=== PATIENT | male | born 1935 | race Caucasian/White ===

== ENCOUNTER → 2017-01-19 | Outpatient (CLI) | payer OTHER ==
[~2017-01-19] MED LIST: ASPEC81 PO; ATOR-26 PO; CLOP1TAB15 PO; CMD5 PO; LISI10TA PO; METO1TAB69 PO; NTRGSL/4 UT; ZNTT/150 PO
[2017-01-19 12:27] LABS: ALT/SGPT 26 U/L (12-78); AST/SGOT 19 U/L (15-37); BLOOD UREA NITROGEN 23 mg/dl (7-18); BUN/CREATININE RATIO 14.1 (10-20); CALCIUM 8.6 mg/dl (8.5-10.1); CARBON DIOXIDE 25 mmol/L (21-32); CHLORIDE 111 mmol/L (98-107); CHOLESTEROL 130 mg/dl (0-200); GLUCOSE 98 mg/dl (70-99); POTASSIUM 4.4 mmol/L (3.5-5.1); SODIUM 144 mmol/L (136-145)
[2017-01-19 12:31] LABS: CHOLESTEROL/HDL RATIO 1.8; HDL CHOLESTEROL 71 mg/dl; LDL CHOLESTEROL CALCULATED 51 mg/dl; TRIGLYCERIDES 38 mg/dl (0-150); VERY LOW DENSITY LIPOPROT CALC 8 mg/dl
[2017-01-19 12:41] LABS: ESTIMATED AVERAGE GLUCOSE 123 mg/dl; HA1C FLAG Normal (Normal)
--- NOTE | 2017-01-25 13:33 | CODING QUERY MEDICAL NECESSITY ---
SUPPORTING DIAGNOSIS NEEDED A supporting diagnosis is required for the test/procedure performed on this patient in order for us to be reimbursed by the patient's insurance. Please provide a supporting diagnosis for the following test/procedure listed below next to the test name along with your signature. *If there is no additional diagnosis for this patient that would support the following test/procedure please document that below next to the test/procedure. Test(s)/Procedure(s) that require a supporting diagnosis: * GLYCATED HEMOGLOBIN DIAGNOSIS: * DOS: 01/19/17 Provider Signature: Date: Thank you Le[facility] Information Management Once completed, please kindly fax back to [phone] For questions please call [phone]
== END | disposition home or self-care (01) ==
LOC: C.LAB1850 11:00
PROVIDERS: ATTEND Internal Medicine
DX: E78.5 Hyperlipidemia, unspecified (principal); R97.20 Elevated prostate specific antigen [PSA]; I25.10 Atherosclerotic heart disease of native coronary artery without angina pectoris; R73.03 Prediabetes

== ENCOUNTER → 2017-03-25 | Outpatient (CLI) | payer OTHER ==
[~2017-03-25] MED LIST changes: +METO100T44 PO; -METO1TAB69 PO
[2017-03-25 12:46] LABS: URINE APPEARANCE CLEAR (CLEAR); URINE BILIRUBIN NEG (NEG); URINE COLOR DK YELLOW; URINE NITRITE NEG (NEG); URINE SPECIFIC GRAVITY 1.021 (1.000-1.030); UROBILINOGEN NEG (NEG); ZZUR CULT IF INDIC CLEAN CATCH NO
[2017-03-25 12:53] LABS: MANUAL MICROSCOPIC REQUIRED? NO; REVIEW REQ? NO
[2017-03-25 17:55] LABS: URINE PROTIEN/CREAT RATIO 0.5 (0-0.2); URINE TOTAL PROTEIN 73.8 mg/dl (0-11.9)
== END | disposition home or self-care (01) ==
LOC: C.LAB1850 10:27
PROVIDERS: ATTEND Internal Medicine Nephrology
DX: N18.3 Chronic kidney disease, stage 3 (moderate) (principal)

== ENCOUNTER → 2017-05-24 | Outpatient (CLI) | payer OTHER ==
[~2017-05-24] MED LIST changes: -METO100T44 PO; +METO1TAB69 PO
[2017-05-24 09:44] LABS: BASO % 0.3 %; BASO ABS # 0.02 K/uL (0-0.2); COMPLETE YES; EOS % 5.2 %; HEMATOCRIT 44.2 % (42-52); IG% 0.2 %; LYMPH % 21.8 %; LYMPH ABS # 1.29 K/uL (1.2-3.4); MEAN CELL VOLUME 92.5 fL (80-100); MEAN CORPUSCULAR HGB CONC 33.5 g/dl (32-36); MEAN PLATELET VOLUME 9.5 fL (7.4-10.4); MONO % 10.2 %; NEUT % 62.3 %; PLATELET COUNT 134 K/uL (130-400); RED BLOOD COUNT 4.78 M/uL (4.7-6.1); WHITE BLOOD COUNT 5.91 K/uL (4.8-10.8)
[2017-05-24 10:24] LABS: BLOOD UREA NITROGEN 22 mg/dl (7-18); BUN/CREATININE RATIO 12.8 (10-20); CALCIUM 8.8 mg/dl (8.5-10.1); CARBON DIOXIDE 29 mmol/L (21-32); CHLORIDE 107 mmol/L (98-107); GLUCOSE 86 mg/dl (70-99); MAGNESIUM 2.3 mg/dl (1.8-2.4); PHOSPHORUS 2.5 mg/dl (2.5-4.9); POTASSIUM 4.2 mmol/L (3.5-5.1); SODIUM 142 mmol/L (136-145)
[2017-05-25 16:53] LABS: ALBUMIN 3.8 G/DL (3.8-4.8); FREE KAPPA 22.2 MG/L (3.3-19.4); FREE KAPPA/LAMBDA RATIO 1.16 (0.26-1.65); FREE LAMBDA 19.2 MG/L (5.7-26.3); GAMMA GLOBULIN 0.7 G/DL (0.8-1.7); TOTAL PROTEIN 5.9 G/DL (6.2-8.3)
== END | disposition home or self-care (01) ==
LOC: C.LAB1850 08:22
PROVIDERS: ATTEND Internal Medicine Nephrology
DX: N18.3 Chronic kidney disease, stage 3 (moderate) (principal)

== ENCOUNTER → 2017-07-26 | Outpatient (CLI) | payer OTHER ==
[2017-07-26 10:14] LABS: BASO % 0.3 %; BASO ABS # 0.02 K/uL (0-0.2); COMPLETE YES; HEMATOCRIT 43.2 % (42-52); IG% 0.3 %; LYMPH % 23.4 %; LYMPH ABS # 1.35 K/uL (1.2-3.4); MEAN CELL VOLUME 92.5 fL (80-100); MEAN CORPUSCULAR HEMOGLOBIN 31.9 pg (25-34); MEAN CORPUSCULAR HGB CONC 34.5 g/dl (32-36); MEAN PLATELET VOLUME 9.6 fL (7.4-10.4); PLATELET COUNT 133 K/uL (130-400); RED BLOOD COUNT 4.67 M/uL (4.7-6.1); WHITE BLOOD COUNT 5.78 K/uL (4.8-10.8)
[2017-07-26 10:26] LABS: ESTIMATED AVERAGE GLUCOSE 123 mg/dl; HA1C FLAG Normal (Normal)
[2017-07-26 10:41] LABS: ALT/SGPT 33 U/L (12-78); AST/SGOT 24 U/L (15-37); BLOOD UREA NITROGEN 18 mg/dl (7-18); BUN/CREATININE RATIO 13.2 (10-20); CALCIUM 8.5 mg/dl (8.5-10.1); CARBON DIOXIDE 30 mmol/L (21-32); CHLORIDE 109 mmol/L (98-107); GLUCOSE 99 mg/dl (70-99); POTASSIUM 4.4 mmol/L (3.5-5.1); SODIUM 143 mmol/L (136-145)
[2017-07-26 10:46] LABS: ALB/GLOB RATIO 1.3 (0.9-2); ALKALINE PHOSPHATASE 56 U/L (45-117); CHOLESTEROL 138 mg/dl (0-200); HDL CHOLESTEROL 69 mg/dl; LDL CHOLESTEROL CALCULATED 58 mg/dl; TRIGLYCERIDES 57 mg/dl (0-150); VERY LOW DENSITY LIPOPROT CALC 11 mg/dl
== END | disposition home or self-care (01) ==
LOC: C.LAB1850 09:33
PROVIDERS: ATTEND Internal Medicine
DX: N28.9 Disorder of kidney and ureter, unspecified (principal); R73.03 Prediabetes; R97.20 Elevated prostate specific antigen [PSA]; E78.5 Hyperlipidemia, unspecified

== ENCOUNTER → 2017-11-22 | Outpatient (CLI) | payer OTHER ==
[~2017-11-22] MED LIST changes: +METO100T44 PO; -METO1TAB69 PO
[2017-11-22 09:33] LABS: BASO % 0.3 %; BASO ABS # 0.02 K/uL (0-0.2); EOS % 5.3 %; EOS ABS # 0.36 K/uL (0-0.5); HEMATOCRIT 45.4 % (42-52); HEMOGLOBIN 15.7 g/dL (14.0-18.0); IG# 0.02 K/uL (0.00-0.02); LYMPH % 19.3 %; MEAN CORPUSCULAR HEMOGLOBIN 32.2 pg (25-34); MEAN CORPUSCULAR HGB CONC 34.6 g/dl (32-36); MEAN PLATELET VOLUME 9.9 fL (7.4-10.4); MONO % 11.6 %; MONO ABS # 0.78 K/uL (0.11-0.59); NEUT % 63.2 %; NEUT ABS # 4.26 K/uL (1.4-6.5); PLATELET COUNT 129 K/uL (130-400); RED CELL DISTRIBUTION WIDTH CV 13.5 % (11.5-14.5); RED CELL DISTRIBUTION WIDTH SD 45.8 fL (36.4-46.3); WHITE BLOOD COUNT 6.74 K/uL (4.8-10.8)
[2017-11-22 10:19] LABS: ALBUMIN 3.7 gm/dl (3.4-5.0); BLOOD UREA NITROGEN 26 mg/dl (7-18); CALCIUM 9.1 mg/dl (8.5-10.1); CARBON DIOXIDE 28 mmol/L (21-32); CREATININE 1.53 mg/dl (0.60-1.40); GLUCOSE 89 mg/dl (70-99); POTASSIUM 3.9 mmol/L (3.5-5.1); SODIUM 140 mmol/L (136-145)
[2017-11-22 10:26] LABS: PHOSPHORUS 2.9 mg/dl (2.5-4.9)
== END | disposition home or self-care (01) ==
LOC: C.LAB1850 08:46
PROVIDERS: ATTEND Internal Medicine Nephrology
DX: N18.3 Chronic kidney disease, stage 3 (moderate) (principal); R97.20 Elevated prostate specific antigen [PSA]

== ENCOUNTER → 2018-02-21 | Outpatient (CLI) | payer OTHER ==
[~2018-02-21] MED LIST changes: +RANI150T85 PO; -ZNTT/150 PO
[2018-02-21 17:08] LABS: ALBUMIN 3.7 gm/dl (3.4-5.0); BLOOD UREA NITROGEN 26 mg/dl (7-18); CALCIUM 8.9 mg/dl (8.5-10.1); CARBON DIOXIDE 29 mmol/L (21-32); CREATININE 1.99 mg/dl (0.60-1.40); GLUCOSE 87 mg/dl (70-99); POTASSIUM 4.6 mmol/L (3.5-5.1); SODIUM 139 mmol/L (136-145)
[2018-02-21 17:09] LABS: PHOSPHORUS 3.4 mg/dl (2.5-4.9)
== END | disposition home or self-care (01) ==
LOC: C.LAB1850 15:22
PROVIDERS: ATTEND Internal Medicine Nephrology
DX: N18.3 Chronic kidney disease, stage 3 (moderate) (principal)

== ENCOUNTER 2018-02-24 20:03 | Emergency (ER) | payer OTHER ==
[~2018-02-24] VITALS: Ht 175.3 cm; Wt 76.2 kg
[2018-02-24 20:09] VITALS: TEMP 36.6; Ht 175.3 cm; Wt 76.2 kg
[2018-02-24 20:51] VITALS: O2SAT 95
[2018-02-24] MEDS ORDERED: METHYLPREDNISOLONE 125 MG VIAL IV STA (20:57)
[2018-02-24] MEDS ORDERED: DiphenhydrAMINE HCL 50 MG/ML VIAL IV STA (20:57)
[2018-02-24] MEDS ORDERED: RANITIDINE HCL 50 MG/100 ML D5W IV STA (20:57)
[2018-02-24] MEDS ORDERED: SODIUM CHLORIDE 0.9% 1000ML 1,000 ML IV STA (21:44)
[2018-02-24 21:53] LABS: ISTAT CREATININE 1.9 mg/dl (0.6-1.3); ISTAT IONIZED CALCIUM 1.2 mmol/l (1.12-1.32); ISTAT POTASSIUM 4.7 mEq/L (3.3-5.0)
[2018-02-24] MEDS ORDERED: OPTIRAY 320 IV PRN (22:15)
--- NOTE | 2018-02-24 22:17 | DIAGNOSTIC IMAGING REPORT ---
HEAD WITHOUT CONTRAST (CT) CLINICAL HISTORY: 82 years-old Male presenting with fall, on coumadin. TECHNIQUE: Multidetector CT imaging of the head was performed without the use of intravenous contrast. IV contrast: None. A dose lowering technique was used consistent with the principles of ALARA (as low as reasonably achievable). COMPARISON: None. CT DOSE (mGy.cm): The estimated cumulative dose is 2066.64 mGy.cm. FINDINGS: Supervisor Microfilm Duplicating Unit topogram: Unremarkable. Ventricles and sulci normal in size. Brain parenchyma normal in appearance with preserved shore-white differentiation. No mass effect or midline shift. No hemorrhage or acute territorial infarct. No extra-axial fluid collection. Paranasal sinuses and mastoid air cells clear. Calvarium intact. IMPRESSION: 1. No acute intracranial abnormality. Electronically signed by: John Varma M.D. 02/24/2018 10:16 PM Dictated Date/Time: 02/24/2018 10:14 PM
--- NOTE | 2018-02-24 22:21 | DIAGNOSTIC IMAGING REPORT ---
CERVICAL SPINE W/O CLINICAL HISTORY: 82 years-old Male presenting with fall, on coumadin. TECHNIQUE: Multidetector CT of the cervical spine was performed without the use of intravenous contrast. IV contrast: None. A dose lowering technique was used consistent with the principles of ALARA (as low as reasonably achievable). COMPARISON: None. CT DOSE (mGy.cm): The estimated cumulative dose is 2066.64 inclusive of multiple additional CT scans. FINDINGS: Electrical Fitter topogram: Unremarkable. Normal cervical lordosis. Multilevel degenerative changes. Vertebral bodies maintain normal height and alignment. Intervertebral disc height loss at multiple levels with associated disc osteophyte complexes. No acute fracture or malalignment. Degenerative change of the atlantodental articulation. Skull base intact. Varying degrees of osseous neural foraminal narrowing. No significant osseous spinal canal narrowing. Positional related rotatory subluxation of C1 on C2. Interlobular septal thickening at the lung apices. Solid 3 mm nodule noted at the left apex (series 5 image 609). Paraspinal soft tissues within normal limits allowing for noncontrast technique. IMPRESSION: 1. No acute osseous injury of the cervical spine. 2. Multilevel degenerative changes. 3. Solid 3 mm left apical pulmonary nodule. Follow-up per Benny Society 2017 recommendations below. Please refer to below summary of Fleischner Society 2017 recommendations for follow-up of incidental CT nodules (H Ronald et al. Guidelines for management of incidental pulmonary nodules detected on CT images: From the Fleischner Society 2017. Radiology 2017; 284: 228-243.) SOLID NODULES Single nodule; size < 6 mm * Low risk patients: No routine follow-up * High risk patients: Optional CT at 12 months Single nodule; size 6-8 mm * Low risk patients: CT at 6-12 months, then consider CT at 18-24 months * High risk patients: CT at 6-12 months, then at 18-24 months Single nodule; size > 8 mm * Either low or high risk patients: Considered CT at 3 months, PET/CT, or tissue sampling Multiple nodules; size < 6 mm * Low risk patients: No routine follow up * High risk patients: Optional CT at 12 months Multiple nodules; size 6-8 mm * Low risk patients: CT at 3-6 months, then consider CT at 18-24 months * High risk patients: CT at 3-6 months, then at 18-24 months Multiple nodules; size > 8 mm * Low risk patients: CT at 3-6 months, then consider at 18-24 months * High risk patients: CT at 3-6 months, then at 18-24 months SUBSOLID NODULES Single ground-glass nodule * Nodule size < 6 mm: No routine follow-up * Nodule size > or = 6 mm: CT at 6-12 months to confirm persistence, then CT every 2 years until 5 years Single part-solid nodule * Nodule size < 6 mm: No routine follow-up * Nodules size > or = 6 mm: CT at 3-6 months to confirm persistence. If unchanged and solid component remains < 6 mm, annual CT should be performed for 5 years Multiple nodules * Nodule size < 6 mm: CT at 3-6 months. If stable, consider CT at 2 and 4 years. * Nodules size > or = 6 mm: CT at 3-6 months. Subsequent management based on the most suspicious nodule(s) NOTE: These guidelines apply to incidental nodules. These guidelines do not apply to patients younger than 35 years, immunocompromised patients, or patients with cancer. * Low risk patients: Minimal or absent history of smoking and/or other known risk factors * High risk patients: History of smoking, exposure to other carcinogens, emphysema, fibrosis, upper lobe location, family history of lung cancer, etc. If a nodule up to 8 mm is partly solid or is ground glass, further follow-up is required after 24 months to exclude possible slow growing adenocarcinoma. Electronically signed by: John Varma M.D. 02/24/2018 10:19 PM Dictated Date/Time: 02/24/2018 10:16 PM
--- NOTE | 2018-02-24 22:26 | DIAGNOSTIC IMAGING REPORT ---
CT (CHEST) THORAX WITH CLINICAL HISTORY: 82 years-old Male presenting with right rib pain/bruising, fall from tractor, on coumadin. TECHNIQUE: Multidetector CT imaging of the chest was performed without the use of intravenous contrast. IV contrast: None. A dose lowering technique was used consistent with the principles of ALARA (as low as reasonably achievable). COMPARISON: Chest x-ray from 02/14/2011. CT DOSE (mGy.cm): The estimated cumulative dose is 2066.64 inclusive of multiple additional CT scans. FINDINGS: Cement Loader topogram: Unremarkable. On soft tissue windows, subcentimeter right thyroid lobe nodule. No axillary, supraclavicular, hilar, or mediastinal lymphadenopathy. Atherosclerosis of the aorta. Multichamber enlargement of the heart. Coronary artery calcification. No pericardial or pleural effusion. Cholelithiasis. Multiple renal cysts. On lung windows, minimal dependent changes likely atelectasis. 3 mm left apical nodule (series 10 image 40). Minimal emphysematous changes. Peripheral triangular solid subpleural nodule in the left lower lobe measuring 4 mm (series 10 image 189). Central airways patent. On bone windows, deformity of the left 10th rib may be postsurgical. No acute osseous injury. IMPRESSION: 1. No acute intrathoracic injury. 2. Bibasilar atelectasis. 3. Solid pulmonary nodules in the left lung measuring up to 4 mm. Follow-up per Benny Society 2017 recommendations below. Please refer to below summary of Fleischner Society 2017 recommendations for follow-up of incidental CT nodules (H Ronald et al. Guidelines for management of incidental pulmonary nodules detected on CT images: From the Fleischner Society 2017. Radiology 2017; 284: 228-243.) SOLID NODULES Single nodule; size < 6 mm * Low risk patients: No routine follow-up * High risk patients: Optional CT at 12 months Single nodule; size 6-8 mm * Low risk patients: CT at 6-12 months, then consider CT at 18-24 months * High risk patients: CT at 6-12 months, then at 18-24 months Single nodule; size > 8 mm * Either low or high risk patients: Considered CT at 3 months, PET/CT, or tissue sampling Multiple nodules; size < 6 mm * Low risk patients: No routine follow up * High risk patients: Optional CT at 12 months Multiple nodules; size 6-8 mm * Low risk patients: CT at 3-6 months, then consider CT at 18-24 months * High risk patients: CT at 3-6 months, then at 18-24 months Multiple nodules; size > 8 mm * Low risk patients: CT at 3-6 months, then consider at 18-24 months * High risk patients: CT at 3-6 months, then at 18-24 months SUBSOLID NODULES Single ground-glass nodule * Nodule size < 6 mm: No routine follow-up * Nodule size > or = 6 mm: CT at 6-12 months to confirm persistence, then CT every 2 years until 5 years Single part-solid nodule * Nodule size < 6 mm: No routine follow-up * Nodules size > or = 6 mm: CT at 3-6 months to confirm persistence. If unchanged and solid component remains < 6 mm, annual CT should be performed for 5 years Multiple nodules * Nodule size < 6 mm: CT at 3-6 months. If stable, consider CT at 2 and 4 years. * Nodules size > or = 6 mm: CT at 3-6 months. Subsequent management based on the most suspicious nodule(s) NOTE: These guidelines apply to incidental nodules. These guidelines do not apply to patients younger than 35 years, immunocompromised patients, or patients with cancer. * Low risk patients: Minimal or absent history of smoking and/or other known risk factors * High risk patients: History of smoking, exposure to other carcinogens, emphysema, fibrosis, upper lobe location, family history of lung cancer, etc. If a nodule up to 8 mm is partly solid or is ground glass, further follow-up is required after 24 months to exclude possible slow growing adenocarcinoma. Electronically signed by: John Varma M.D. 02/24/2018 10:25 PM Dictated Date/Time: 02/24/2018 10:20 PM
--- NOTE | 2018-02-24 22:35 | DIAGNOSTIC IMAGING REPORT ---
ABD/PELVIS IV CONTRAST ONLY CLINICAL HISTORY: 82 years-old Male presenting with right flank pain/bruising, fall. TECHNIQUE: Multidetector CT of the abdomen and pelvis was performed after the administration of intravenous contrast. IV contrast: 94 mL of Optiray 320. A dose lowering technique was used consistent with the principles of ALARA (as low as reasonably achievable). COMPARISON: None. CT DOSE (mGy.cm): The estimated cumulative dose is 2066.64 inclusive of multiple additional CT scans. FINDINGS: Retail Leader topogram: Unremarkable. Lung bases: Minimal basilar opacities, likely atelectasis. Multichamber enlargement of the heart. Coronary artery calcification. No pericardial or pleural effusion. Liver: Congenital hypoplasia of the medial segments of the left hepatic lobe. Biliary: No intrahepatic or extrahepatic biliary ductal dilatation. Gallbladder contains gallstones. Pancreas: Moderate parenchymal atrophy. Ovoid 15 mm cystic lesion (series 11 image 170) along the hepatic tail. No associated pancreatic ductal dilatation. 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 Spleen: Normal. Adrenal glands: Normal. Kidneys and ureters: Multiple well-defined hypodensities in the kidneys likely simple cysts. No hydronephrosis. No nephrolithiasis. Ureters normal. Bladder: Normal. Pelvic organs: Prostate enlargement likely secondary to benign prostatic hyperplasia. Bowel: Limited diverticulosis of the junction of the descending and sigmoid colon. The appendix is not visualized though no inflammatory changes evident in the right lower quadrant. No bowel obstruction. Peritoneal cavity: No free fluid or intraperitoneal gas. Lymph nodes: No enlarged lymph nodes in the abdomen or pelvis. Vasculature: Atherosclerosis of the normal caliber abdominal aorta. IVC patent. Abdominal wall: Postsurgical changes of the right lower quadrant likely from appendectomy. Musculoskeletal: Degenerative changes of the spine. IMPRESSION: 1. No acute intra-abdominal injury. 2. 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 Follow-up pancreatic MR or CT recommended in one year to ensure stability. Electronically signed by: John Varma M.D. 02/24/2018 10:33 PM Dictated Date/Time: 02/24/2018 10:26 PM
--- NOTE | 2018-02-24 23:10 | EMERGENCY ROOM VISIT NOTE ---
ED Visit Note First contact with patient: 20:33 CHIEF COMPLAINT: Left shoulder and right rib injury, fall from tractor HISTORY OF PRESENT ILLNESS: This 82-year-old male patient presents to the emergency department, ambulatory, complaining of pain in the right ribs and left shoulder after falling off of a tractor at approximately 7 PM. The patient states when he fell, he landed on his right side. He later noticed bruising of the right flank and over top of the right lateral ribs. The patient does complain of pleuritic pain, but denies any difficulty breathing or chest pain. The patient is uncertain if he struck his head at all, but denies any loss of consciousness, nausea, vomiting, or visual disturbances. The patient states the pain is worse with bending to the left side or coughing.. Attempting to sit up from a lying position is painful. Denies shortness of breath or coughing up blood. The patient rates the pain as sharp and 8/10. The patient has taken no medications for relief of the pain. No previous fractures to the ribs, but he did have a rib removed as a child. The patient denies any other injury. The patient denies any abdominal pain, nausea, or vomiting. The patient is currently on aspirin and Plavix. REVIEW OF SYSTEMS: A 10 system review of systems was completed with positives and pertinent negatives listed in the HPI. ALLERGIES: Contrast iodine - The patient was unaware of this allergy, however, I did verify it in documentation from his heart catheterization several years ago. MEDICATIONS: Aspirin, Plavix, lisinopril, metoprolol, Zantac PMH: Heart disease, hypertension, hyperlipidemia, coronary stent SOCIAL HISTORY: The patient lives locally with family. He denies drug, alcohol , tobacco use. PHYSICAL EXAM: VITALS: Vitals are noted on the nurse's note and reviewed by myself. Vital signs stable. GENERAL: This is an 82-year-old white male, in no acute distress, nondiaphoretic , well-developed well-nourished. NEURO: The patient is alert, oriented to person place and time, and coherent. Normal mini mental status exam. HEAD: Normocephalic, atraumatic. No tenderness on examination. EYES: Pupils are equal round and reactive to light and accommodation. EOMs are full and optic discs and fundi are normal. There is no swelling or discoloration of the tissue surrounding the eyes. EARS: External auditory canals clear without blood. NOSE: Patent without tenderness. No septal hematoma. FACE: No facial tenderness. NECK: Supple. There is no cervical spine tenderness. The patient does not have tenderness with movement of the neck. LUNGS: Clear to auscultation and breath sounds equal, no wheezes, rales, or rhonchi. HEART: Heart sounds are regular without murmurs, ectopy, gallop, or rub. CHEST: The right chest wall is tender to palpation over the 10th rib but there is no fracture crepitus. There is ecchymosis. There is no tachypnea or dyspnea. ABDOMEN: There is ecchymosis of the right flank positive bowel sounds x 4. Normal tympanic percussion. Soft, nontender, without masses or organomegaly. No guarding or rebound tenderness. MUSCULOSKELETAL: No tenderness to palpation of the left shoulder. The patient has limited range of motion due to pain. Negative sulcus sign. RADIOLOGY: HEAD WITHOUT CONTRAST (CT) CLINICAL HISTORY: 82 years-old Male presenting with fall, on coumadin. TECHNIQUE: Multidetector CT imaging of the head was performed without the use of intravenous contrast. IV contrast: None. A dose lowering technique was used consistent with the principles of ALARA (as low as reasonably achievable). COMPARISON: None. CT DOSE (mGy.cm): The estimated cumulative dose is 2066.64 mGy.cm. FINDINGS: [employer] topogram: Unremarkable. Ventricles and sulci normal in size. Brain parenchyma normal in appearance with preserved shore-white differentiation. No mass effect or midline shift. No hemorrhage or acute territorial infarct. No extra-axial fluid collection. Paranasal sinuses and mastoid air cells clear. Calvarium intact. IMPRESSION: 1. No acute intracranial abnormality. Electronically signed by: John Varma M.D. 02/24/2018 10:16 PM Dictated Date/Time: 02/24/2018 10:14 PM CERVICAL SPINE W/O CLINICAL HISTORY: 82 years-old Male presenting with fall, on coumadin. TECHNIQUE: Multidetector CT of the cervical spine was performed without the use of intravenous contrast. IV contrast: None. A dose lowering technique was used consistent with the principles of ALARA (as low as reasonably achievable). COMPARISON: None. CT DOSE (mGy.cm): The estimated cumulative dose is 2066.64 inclusive of multiple additional CT scans. FINDINGS: [employer] topogram: Unremarkable. Normal cervical lordosis. Multilevel degenerative changes. Vertebral bodies maintain normal height and alignment. Intervertebral disc height loss at multiple levels with associated disc osteophyte complexes. No acute fracture or malalignment. Degenerative change of the atlantodental articulation. Skull base intact. Varying degrees of osseous neural foraminal narrowing. No significant osseous spinal canal narrowing. Positional related rotatory subluxation of C1 on C2. Interlobular septal thickening at the lung apices. Solid 3 mm nodule noted at the left apex (series 5 image 609). Paraspinal soft tissues within normal limits allowing for noncontrast technique. IMPRESSION: 1. No acute osseous injury of the cervical spine. 2. Multilevel degenerative changes. 3. Solid 3 mm left apical pulmonary nodule. Follow-up per Benny Society [address] (CHEST) THORAX WITH CLINICAL HISTORY: 82 years-old Male presenting with right rib pain/bruising, fall from tractor, on coumadin. TECHNIQUE: Multidetector CT imaging of the chest was performed without the use of intravenous contrast. IV contrast: None. A dose lowering technique was used consistent with the principles of ALARA (as low as reasonably achievable). COMPARISON: Chest x-ray from 02/14/2011. CT DOSE (mGy.cm): The estimated cumulative dose is 2066.64 inclusive of multiple additional CT scans. FINDINGS: [employer] topogram: Unremarkable. On soft tissue windows, subcentimeter right thyroid lobe nodule. No axillary, supraclavicular, hilar, or mediastinal lymphadenopathy. Atherosclerosis of the aorta. Multichamber enlargement of the heart. Coronary artery calcification. No pericardial or pleural effusion. Cholelithiasis. Multiple renal cysts. On lung windows, minimal dependent changes likely atelectasis. 3 mm left apical nodule (series 10 image 40). Minimal emphysematous changes. Peripheral triangular solid subpleural nodule in the left lower lobe measuring 4 mm (series 10 image 189). Central airways patent. On bone windows, deformity of the left 10th rib may be postsurgical. No acute osseous injury. IMPRESSION: 1. No acute intrathoracic injury. 2. Bibasilar atelectasis. 3. Solid pulmonary nodules in the left lung measuring up to 4 mm. Follow-up per Benny Society 2017 recommendations below. Please refer to below summary of Fleischner Society 2017 recommendations for follow-up of incidental CT nodules (H Ronald et al. Guidelines for management of incidental pulmonary nodules detected on CT images: From the Fleischner Society 2017. Radiology 2017; 284: 228-243.) SOLID NODULES Single nodule; size < 6 mm * Low risk patients: No routine follow-up * High risk patients: Optional CT at 12 months Single nodule; size 6-8 mm * Low risk patients: CT at 6-12 months, then consider CT at 18-24 months * High risk patients: CT at 6-12 months, then at 18-24 months Single nodule; size > 8 mm * Either low or high risk patients: Considered CT at 3 months, PET/CT, or tissue sampling Multiple nodules; size < 6 mm * Low risk patients: No routine follow up * High risk patients: Optional CT at 12 months Multiple nodules; size 6-8 mm * Low risk patients: CT at 3-6 months, then consider CT at 18-24 months * High risk patients: CT at 3-6 months, then at 18-24 months Multiple nodules; size > 8 mm * Low risk patients: CT at 3-6 months, then consider at 18-24 months * High risk patients: CT at 3-6 months, then at 18-24 months SUBSOLID NODULES Single ground-glass nodule * Nodule size < 6 mm: No routine follow-up * Nodule size > or = 6 mm: CT at 6-12 months to confirm persistence, then CT every 2 years until 5 years Single part-solid nodule * Nodule size < 6 mm: No routine follow-up * Nodules size > or = 6 mm: CT at 3-6 months to confirm persistence. If unchanged and solid component remains < 6 mm, annual CT should be performed for 5 years Multiple nodules * Nodule size < 6 mm: CT at 3-6 months. If stable, consider CT at 2 and 4 years. * Nodules size > or = 6 mm: CT at 3-6 months. Subsequent management based on the most suspicious nodule(s) NOTE: These guidelines apply to incidental nodules. These guidelines do not apply to patients younger than 35 years, immunocompromised patients, or patients with cancer. * Low risk patients: Minimal or absent history of smoking and/or other known risk factors * High risk patients: History of smoking, exposure to other carcinogens, emphysema, fibrosis, upper lobe location, family history of lung cancer, etc. If a nodule up to 8 mm is partly solid or is ground glass, further follow-up is required after 24 months to exclude possible slow growing adenocarcinoma. Electronically signed by: John Varma M.D. 02/24/2018 10:25 PM Dictated Date/Time: 02/24/2018 10:20 PM ABD/PELVIS IV CONTRAST ONLY CLINICAL HISTORY: 82 years-old Male presenting with right flank pain/bruising, fall. TECHNIQUE: Multidetector CT of the abdomen and pelvis was performed after the administration of intravenous contrast. IV contrast: 94 mL of Optiray 320. A dose lowering technique was used consistent with the principles of ALARA (as low as reasonably achievable). COMPARISON: None. CT DOSE (mGy.cm): The estimated cumulative dose is 2066.64 inclusive of multiple additional CT scans. FINDINGS: [employer] topogram: Unremarkable. Lung bases: Minimal basilar opacities, likely atelectasis. Multichamber enlargement of the heart. Coronary artery calcification. No pericardial or pleural effusion. Liver: Congenital hypoplasia of the medial segments of the left hepatic lobe. Biliary: No intrahepatic or extrahepatic biliary ductal dilatation. Gallbladder contains gallstones. Pancreas: Moderate parenchymal atrophy. Ovoid 15 mm cystic lesion (series 11 image 170) along the hepatic tail. No associated pancreatic ductal dilatation. 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 Spleen: Normal. Adrenal glands: Normal. Kidneys and ureters: Multiple well-defined hypodensities in the kidneys likely simple cysts. No hydronephrosis. No nephrolithiasis. Ureters normal. Bladder: Normal. Pelvic organs: Prostate enlargement likely secondary to benign prostatic hyperplasia. Bowel: Limited diverticulosis of the junction of the descending and sigmoid colon. The appendix is not visualized though no inflammatory changes evident in the right lower quadrant. No bowel obstruction. Peritoneal cavity: No free fluid or intraperitoneal gas. Lymph nodes: No enlarged lymph nodes in the abdomen or pelvis. Vasculature: Atherosclerosis of the normal caliber abdominal aorta. IVC patent. Abdominal wall: Postsurgical changes of the right lower quadrant likely from appendectomy. Musculoskeletal: Degenerative changes of the spine. IMPRESSION: 1. No acute intra-abdominal injury. 2. 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 Follow-up pancreatic MR or CT recommended in one year to ensure stability. Electronically signed by: John Varma M.D. 02/24/2018 10:33 PM Dictated Date/Time: 02/24/2018 10:26 PM EMERGENCY DEPARTMENT COURSE: I examined the patient. IV access obtained, labs drawn. The patient was given 1 L normal saline solution due to creatinine of 1.9. Other lab findings without significant abnormalities. The patient was pretreated with 50 mg diphenhydramine, 125 mg Solu-Medrol, and 50 mg ranitidine due to his previous documentation of contrast allergy. CT imaging performed as above due to the mechanism of injury, ecchymosis noted on examination, and the patient's use of antiplatelet medication. CT scans reviewed by myself and radiologist as above. I discussed the case with Dr. Carrillo, who was agreeable with the plan of care. He did see and evaluate the patient. I discussed the findings with the patient and his at bedside, and did discuss the incidental findings of pulmonary nodules and pancreatic cyst. The patient was encouraged to follow-up outpatient with his PCP regarding these findings. He did indicate that he has an appointment coming up this week. He was provided with the readings of the CT scans to take with him to his PCPs office. The patient was offered analgesia multiple times throughout his stay, and did decline. Discharge instructions reviewed, the patient was discharged home in good condition. I attest that I have personally reviewed the patient's current medication list. Patient was found to have normal blood pressure on screening and does not require follow-up. Etiologies such as fracture, dislocation, soft tissue injury, intra-abdominal, intrathoracic, intracranial as well as other traumatic pathologies were entertained. DIAGNOSIS: Fall from tractor, right rib contusion, multiple contusions, pulmonary nodule The chart was completed utilizing [employer] Speech voice recognition software. Grammatical errors, random word insertions, pronoun errors, and incomplete sentences are an occasional consequence of this system due to software limitations, ambient noise, and hardware issues. Any formal questions or concerns about the content, text, or information contained within the body of this dictation should be directly addressed to the provider for clarification. Current/Historical Medications Scheduled Aspirin Enteric Coated (Ecotrin Or Generic *), 81 MG PO DAILY Atorvastatin (Lipitor), 80 MG PO DAILY Clopidogrel (Plavix), 75 MG PO DAILY Lisinopril (Prinivil), 10 MG PO DAILY Metoprolol Succ (Toprol Xl) (Toprol-Xl ), 100 MG PO DAILY Nitroglycerin (Nitrostat), 0.4 MG UT PRN Ranitidine (Zantac), 150 MG PO DAILY Warfarin Sod (Coumadin *), 5 MG PO DAILY Allergies Coded Allergies: Iodinated Contrast Media (Unverified Allergy, Severe, edema face, difficulty breathing, periorbital edema, 02/16/11) Vital Signs Date Time Temp Pulse Resp B/P (MAP) Pulse Ox O2 Delivery O2 Flow Rate FiO2 02/24/18 23:30 68 16 145/73 95 02/24/18 20:51 95 Room Air 02/24/18 20:09 36.6 65 18 146/84 95 Room Air Laboratory Results Test 02/24/18 21:26 Bedside Hemoglobin 15.3 g/dl (14.0-18.0) Bedside Hematocrit 45 % (42-52) Bedside Sodium 144 mEq/L (135-144) Bedside Potassium 4.7 mEq/L (3.3-5.0) Bedside Chloride 106 mEq/L (101-112) Bedside Total CO2 26 mEq/l (24-31) Anion Gap 18.0 mmol/L (16-25) Bedside Blood Urea Nitrogen 29 mg/dl (7-18) Bedside Creatinine 1.9 mg/dl (0.6-1.3) Bedside Glucose (other) 107 mg/dl (70-99) Bedside Ionized Calcium (Olga) 1.20 mmol/l (1.12-1.32) Medications Administered Medications (Trade) Dose Ordered Sig/Vicki Route Start Time Stop Time Status Last Admin Dose Admin Diphenhydramine HCl (Benadryl Inj) 50 mg NOW STAT IV 02/24/18 20:57 02/24/18 21:08 DC 02/24/18 21:34 50 MG Methylprednisolone Sodium Succinate (Solu-Medrol IV) 125 mg NOW STAT IV 02/24/18 20:57 02/24/18 21:08 DC 02/24/18 21:34 125 MG Ranitidine HCl (zANTac IV) 50 mg NOW STAT IV 02/24/18 20:57 02/24/18 21:09 DC 02/24/18 21:34 50 MG Sodium Chloride 1,000 ml @ 999 mls/hr Q1H1M STAT IV 02/24/18 21:44 02/24/18 22:44 DC 02/24/18 21:49 999 MLS/HR Departure Information Impression Primary Impression: Fall Additional Impressions: Contusion of multiple sites Contusion of rib on right side Pulmonary nodule Dispostion Home / Self-Care Condition GOOD Referrals Pro,Sergei Hernandez M.D. (PCP) Patient Instructions ED Contusion Rib, ED Nodule Solitary Pulmonary, [facility] Additional Instructions You have been treated in the Emergency Department for Rib Pain. As discussed, CT scans did not reveal any significant acute abnormal findings, however there were some nodules noted in your lung as well as pancreas. You should have these findings followed up with your PCP. For pain control, you can use the following [id number] medicines (if >12 yo): Acetaminophen(Tylenol) may be used for fever or pain. Use 1000mg every six to eight hours as needed. Avoid using more than 3000mg in a 24 hour period. If this is an acute injury, ice can be applied to the area of pain for the first 3 days to help decrease pain and inflammation. After the first 3 days, a heating pad can be used over the area for continued soothing relief. You should schedule a follow-up appointment in 2-3 days with your Primary Care Provider for further evaluation and treatment of your rib pain. Hugging a pillow while coughing or sneezing can help to reduce your pain. Be sure to continue taking occasional deep breaths to help expand your lungs to reduce the risk of developing pneumonia. Return to the Emergency Department if your current symptoms worsen despite treatment course outlined above, or if you develop any of the following symptoms : intractable pain despite aforementioned treatment course, loss of control of your bowel or bladder, numbness or tingling in your groin, or development of a fever. Problem Qualifiers Primary Impression: Fall Encounter type: initial encounter Qualified Codes: W19.XXXA - Unspecified fall, initial encounter Additional Impressions: Contusion of rib on right side Encounter type: initial encounter Qualified Codes: S20.211A - Contusion of right front wall of thorax, initial encounter
--- NOTE | 2018-02-24 23:26 | EMERGENCY ROOM VISIT NOTE ---
ED Visit Note First contact with patient: 20:33 I have personally evaluated this patient examined her and reviewed the pertinent labs and data. I have discussed the case with Mague Scott, the physician assistant to the vice president and agree with the plan. Please refer to the PA note This patient comes in after falling off of his tractor. He did not get rolled over by the tractor. There is no mower going. He has some pain along the right lateral flank area. CAT scans were obtained of the chest abdomen and pelvis and showed no acute injuries. On my exam, he appears comfortable is a small bruise near the right mid flank. He had some incidental findings on the CAT scan including a nodule on his lung and a cyst on his pancreas. I talked to the patient is at length and told that they need to make sure they follow up with her regular doctor and may need further imaging in the future. He is happy with the plan and was discharged to home.
[2018-02-24 23:30] VITALS: BP 145/73; PULSE 68; O2SAT 95
== END 2018-02-24 23:30 | disposition home or self-care (01) ==
LOC: C.EDB 20:04 → C.EDD 23:30
DX: T14.8XXA Other injury of unspecified body region, initial encounter (principal); S20.211A Contusion of right front wall of thorax, initial encounter; W30.89XA Contact with other specified agricultural machinery, initial encounter; R91.1 Solitary pulmonary nodule; Z79.82 Long term (current) use of aspirin; I51.9 Heart disease, unspecified; I10 Essential (primary) hypertension; E78.5 Hyperlipidemia, unspecified; Z79.01 Long term (current) use of anticoagulants; Z51.81 Encounter for therapeutic drug level monitoring

== ENCOUNTER 2025-11-04 15:17 | Inpatient (IN) ==
[2025-11-04 16:06] LABS: Hematocrit (blood only) 34.5 % (42.0-52.0); Hemoglobin 11.6 g/dL (14.0-18.0); Immature Granulocytes # (auto) 0.04 K/uL (0.01-0.20); Immature Granulocytes % (auto) 0.4 %; Mean Corpuscular Hemoglobin 31.3 pg (25.0-34.0); Mean Corpuscular Volume 93.0 fL (80.0-100.0); Platelet Count 142 K/uL (130-400); RDW Standard Deviation 44.7 fL (36.4-46.3); Red Blood Count 3.71 M/uL (4.70-6.10); White Blood Count 9.28 K/ul (4.8-10.8)
[2025-11-04 16:25] LABS: Alanine Aminotransferase 19.0 U/L (7-52); Albumin Globulin Ratio 1.3 (0.9-2); Albumin Level 3.5 gm/dl (3.4-5.0); Alkaline Phosphatase 53.0 U/L (34-104); Anion Gap 7.0 (3-11); Bilirubin,Total 0.7 mg/dl (0.2-1.0); Blood Urea Nitrogen 52.0 mg/dl (6-23); Calcium 8.8 mg/dl (8.6-10.3); Carbon Dioxide 26.0 mmol/L (21-32); Chloride 102.0 mmol/L (98-107); Creatinine Clr Calc Pharmacy 15.5 ml/min; Globulin 2.8 gm/dl (2.5-4.0); Glucose 139.0 mg/dl (70-99(Fasting)); Potassium 4.3 mmol/L (3.5-5.1); Sodium 135.0 mmol/L (136-145); Total Protein 6.3 gm/dl (6.0-8.3)
--- NOTE | 2025-11-04 16:26 | Emergency Department Note ---
Impression & Plan JORGE (acute kidney injury), Pulmonary nodule, Multiple falls, Enlarged prostate, Elevated troponin I level ED Provider Note NAME: DENYS SIERRA AGE: 89 SEX: M : 1935 ARRIVES VIA: Walk-In INFORMANT: Patient, ED PROVIDER(S): Sergei Rai DO CHIEF COMPLAINT: Off-balance HPI: The patient is an 89-year-old male who presented to the emergency department for an evaluation. The patient presented with his son. He has had multiple episodes of falls today. He states the falls are very mild and feel as though he is off balance when he tries to walk. The patient denies having any fever. He denies having any coughing. He does complain of some chest pain as well as some abdominal pain. He denies having any extremities to the lower injuries or difficulty breathing. The patient has not been seen by his family doctor but presented to the emergency department for further evaluation. The patient has been compliant with his outpatient medication regimen. ROS: See above HPI for pertinent positives & negatives. A total of 10 systems reviewed and were otherwise negative. PAST MEDICAL HISTORY: See Below PAST SURGICAL HISTORY: See Below FAMILY HISTORY: See Below SOCIAL HISTORY: See Below HOME MEDICATIONS: See Below ALLERGIES: See Below VITALS: See Below PHYSICAL EXAMINATION: GENERAL: Patient is awake alert in no acute distress patient is resting comfortably and showing no signs of anxiety EYES: The conjunctivae are clear. The pupils are round and reactive. EARS, NOSE, MOUTH AND THROAT: The nose is without any evidence of any deformity. Mucous membranes are moist. NECK: The neck is nontender and supple. RESPIRATORY: Normal respiratory effort is noted there is no evidence of wheezing rhonchi or rales CARDIOVASCULAR: Irregular heart rate was noted to auscultation. There is no definite murmur. GASTROINTESTINAL: The abdomen was soft and mildly distended. There is diffuse tenderness to palpation but no specific guarding or rigidity noted. BACK: No midline tenderness or or step-off noted range of motion in flexion extension as well as rotation no signs of muscle spasm noted MUSCULOSKELETAL/EXTREMITIES: There is no evidence of gross deformity full range of motion is noted in the hips and shoulders. SKIN: There is no obvious evidence of any rash. There are no petechiae, pallor or cyanosis noted. NEUROLOGIC: Patient is awake alert and oriented x3. Strength was symmetric. The patient is able to hold each leg off the bed for greater than 5 seconds. MEDICAL DECISION MAKING: The patient is an 89-year-old male who presented to the emergency department for an evaluation. The patient's been having problems with his balance. He is had multiple falls especially recently. The patient had a fall today and felt very dizzy and lightheaded upon standing. I discussed the patient's laboratory and radiographic studies with him. He was found to have a slowly elevating creatinine especially over the course the last 12 months. Given these findings I was concerned about his renal status. CT of the abdomen and pelvis was obtained without contrast and does appear to be consistent with some degree of renal disease as well as enlarged prostate. Given the patient's findings I discussed his condition with the on-call [facility] hospitalist. They have agreed to evaluate the patient in the emergency department for further management and disposition. He was treated with IV fluids. Triage Nursing notes reviewed. Prior medical records reviewed Vital Signs: reviewed and remarkable for elevated blood pressure. Differential diagnosis: Infection, dehydration, metabolic abnormality, hypo/hyperglycemia, electrolyte disturbance, anemia, hypoxia, cardiac sources, intracerebral event, toxicologic, neurologic, as well as other pathologies. ER treatment provided: See below Diagnostics interpreted by me: ECG: EKG was obtained in the emergency department. My interpretation is atrial fibrillation at 86 bpm. PVCs were noted. There is nonspecific ST depression with T wave abnormalities also noted. This was carried to a tracing from February 18, 2011. A similar ST depression was noted on this tracing. Cardiac Monitoring: An order was placed for continuous cardiac monitoring. The monitor shows a rate of 80 bpm with sinus rhythm. Laboratory studies: As stated above and show below. Imaging studies: See below. Radiographic imaging was reviewed by myself Consultation(s): I discussed this case with Dr. Nova who is on-call for the [facility] Hospitalist group. Past Med/Surg History Problem List (Updated 11/04/25 @ 22:38 by Sergei Rai DO) Elevated troponin I level (Acute) Multiple falls (Acute) JORGE (acute kidney injury) (Acute) Enlarged prostate (Acute) Chronic anticoagulation Atrial fibrillation with slow ventricular response Aortic systolic murmur on examination Arthritis of knee, left Antiplatelet or antithrombotic long-term use Essential hypertension (Acute) Dyslipidemia (Chronic) Presence of bare metal stent in LAD coronary artery (Chronic) CAD (coronary artery disease) (Chronic) Pulmonary nodule (Chronic) Chronic kidney disease (CKD), stage III (moderate) (Acute) Elevated PSA (Acute) Prediabetes (Chronic) Medical History Rupture of popliteal cyst Pain of left calf Surgical History S/P thoracotomy Status post repair of nerve S/P hemorrhoidectomy S/P cardiac catheterization S/P appendectomy Family History Mother Colorectal cancer Father Coronary arteriosclerosis Myocardial infarction Denies family history of Ovarian cancer Prostate cancer Breast cancer Social History Smoking Status: Never smoker Do You Dip or Chew Tobacco: No; Hx Alcohol Use: Yes (social) Hx Substance Use: No Preferred Language: Tamazight Communication Ability: Effective Visual Impairment: No Limitations Hearing Ability: Normal Beliefs That Will Affect Care: None marital status: Current Living Situation: Spouse current occupational status: retired Feels Safe at Home: Yes Childhood Exposure to Second-Hand Smoke: Yes Diet: regular caffeine: Yes Dental Care, Regularly: Yes Physical Activity Frequency: 5-6 Times per Week Seatbelt Use: always Sunscreen Use: Yes Do you think of yourself as: straight/heterosexual Gender Identity: Male Assistive Devices: Hearing Aid - Bilateral Allergies Allergies Allergy/AdvReac Type Severity Reaction Status Date / Time Iodinated Contrast Media Allergy Severe edema Verified 08/29/25 11:20 face, difficulty breathing, periorbital edema Home Meds Home Medications Medication Instructions Recorded Confirmed nitroglycerin 0.4 mg sublingual 0.4 mg sublingual Q5M PRN chest 07/11/19 08/29/25 tablet pain #25 tabs Previous Rx's Medication Instructions Recorded cholecalciferol (vitamin D3) 50 2,000 units PO DAILY #30 tabs 12/05/19 mcg (2,000 unit) tablet sildenafil 50 mg tablet 50 mg PO DAILY PRN sexual activity 05/05/21 #10 tabs aspirin 81 mg tablet,delayed 81 mg PO .M.W.F #90 tabs 05/26/22 release (Adult Low Dose Aspirin) amlodipine 5 mg tablet 5 mg PO DAILY 90 days #90 tabs 09/03/22 atorvastatin 80 mg tablet 80 mg PO DAILY #90 tabs 11/18/22 lisinopril 10 mg tablet 10 mg PO DAILY #90 tabs 11/22/22 apixaban 2.5 mg tablet (Eliquis) 2.5 mg PO BID #180 tabs 06/13/23 metoprolol succinate 25 mg 12.5 mg (1/2 x 25 mg) PO DAILY #90 06/13/23 tablet,extended release 24 hr tabs Results & Data (ED) Vital Signs Vital Signs - 24 hr 11/04/25 15:31 11/04/25 17:24 Temperature 37.7 C H Temperature Source Skin Pulse Rate 65 83 Respiratory Rate 16 Blood Pressure 139/80 Blood Pressure Mean 99 Pulse Oximetry 96 Sepsis Recent Fever Within 48 Hours No Sepsis New/Unexplained Change in Mental Status N/A Sepsis Action Taken by Nursing No Action Required Home Medications Current Medication List: was personally reviewed by me Laboratory Data Attestation: I reviewed the patient's lab results. 11/04/25 15:53 11/04/25 15:53 Lab Results 11/04/25 11/04/25 Range/Units 15:53 16:20 WBC 9.28 (4.8-10.8) K/ul RBC 3.71 L (4.70-6.10) M/uL Hgb 11.6 L (14.0-18.0) g/dL Hct 34.5 L (42.0-52.0) % MCV 93.0 (80.0-100.0) fL MCH 31.3 (25.0-34.0) pg MCHC 33.6 (32.0-36.0) g/dL RDW Std Deviation 44.7 (36.4-46.3) fL RDW Coeff of Raul 13.1 (11.5-14.5) % Plt Count 142 (130-400) K/uL MPV 9.9 (9.4-12.4) fL Immature Gran % (Auto) 0.4 % Neut % (Auto) 80.1 % Lymph % (Auto) 8.0 % O'Brien % (Auto) 11.0 % Eos % (Auto) 0.3 % Baso % (Auto) 0.2 % Neut # (Auto) 7.43 H (1.40-6.50) K/uL Lymph # (Auto) 0.74 L (1.20-3.40) K/uL O'Brien # (Auto) 1.02 H (0.11-0.59) K/uL Eos # (Auto) 0.03 (0.00-0.50) K/uL Baso # (Auto) 0.02 (0.00-0.20) K/uL Immature Gran # (Auto) 0.04 (0.01-0.20) K/uL PT 11.9 (9.0-12.0) Seconds INR 1.1 (0.9-1.1) APTT 30 (21-31) Seconds PTT Ratio 1.1 Sodium 135 L (136-145) mmol/L Potassium 4.3 (3.5-5.1) mmol/L Chloride 102 (98-107) mmol/L Carbon Dioxide 26 (21-32) mmol/L Anion Gap 7 (3-11) BUN 52 H (6-23) mg/dl Creatinine 3.20 H (0.6-1.4) mg/dl Est Cr Clr Drug Dosing 15.5 ml/min eGFR 17.93 BUN/Creatinine Ratio 16.3 (10-20) Glucose 139 H (70-99(Fasting)) mg/dl Calcium 8.8 (8.6-10.3) mg/dl Total Bilirubin 0.7 (0.2-1.0) mg/dl AST 24 (13-39) U/L ALT 19 (7-52) U/L Alkaline Phosphatase 53 (34-104) U/L Total Protein 6.3 (6.0-8.3) gm/dl Albumin 3.5 (3.4-5.0) gm/dl Globulin 2.8 (2.5-4.0) gm/dl Albumin/Globulin Ratio 1.3 (0.9-2) Urine Color Yellow Urine Appearance Clear (Clear) Urine pH 5.5 (4.5-7.5) Ur Specific [place] 1.018 (1.000-1.030) Urine Protein 3+ H (Negative) Urine Glucose (UA) Negative (Negative) Urine Ketones Trace H (Negative) Urine Blood 2+ H (Negative) Urine Nitrite Negative (Negative) Urine Bilirubin Negative (Negative) Urine Urobilinogen Negative (Negative) Ur Leukocyte Esterase Negative (Negative) Urine WBC (Auto) 0-5 (0-5) /hpf Urine RBC (Auto) 0-2 (0-2) /hpf U Hyaline Cast (Auto) 3-5 H (0-2) /lpf U Epithel Cells (Auto) 0-2 (0-2) /hpf Urine Bacteria (Auto) None Seen (None Seen) Ur Random Creatinine 109.1 mg/dl U Random Total Protein 413.4 H (0-11.9) mg/dl Protein/Creatinin Ratio 3.8 H (0-0.2) Urine Comment SARS-CoV-2 (PCR) NEGATIVE (Negative) Influenza Type A (PCR) Negative (Neg) Influenza Type B (PCR) Negative (Neg) RSV (RT-PCR) Negative (Neg) Administered Medications Lactated Ringer's (Lr) 1,000 mls @ 80 mls/hr IV .[id number] MANUEL Stop: 11/05/25 07:00 Last Admin: 11/04/25 19:15 Dose: 80 mls/hr Documented By: mateo Discontinued Medications Sodium Chloride (Nss) 500 mls @ 999 mls/hr IV .Q31M ONE Stop: 11/04/25 16:57 Last Admin: 11/04/25 16:41 Dose: 999 mls/hr Documented By: mateo Sodium Chloride (Nss) 500 mls @ 999 mls/hr IV .Q31M ONE Stop: 11/04/25 17:24 Last Admin: 11/04/25 17:10 Dose: 999 mls/hr Documented By: mateo Imaging Data Attestation: I personally reviewed and interpreted this imaging study as follows: My Impression: CT of the chest was obtained in the emergency department. My interpretation is no free air or definite infiltrate, final report below. Radiologist's Impression: Abdomen/Pelvis CT 11/04/25 16:11 Clinical History: Multiple falls Technique: Axial computed tomography images were obtained of the abdomen and pelvis without intravenous contrast. Comparison is made to the prior CT dated 02/24/2018 Findings: The liver is overall of normal size, attenuation, and contour with no sign of cirrhosis or significant fatty infiltration. No definite liver mass lesion is seen on this noncontrast study. Gallstones are again seen. There is no sign of acute cholecystitis. No bile duct dilatation is noted. The spleen is of normal size. No focal splenic lesion is evident. There is an unchanged 1.3 cm cyst in the distal pancreatic body. The pancreas otherwise appears normal with no sign of acute or chronic pancreatitis and no mass lesion noted. The pancreatic duct is of normal caliber. The adrenal glands appear unremarkable. No renal or proximal ureteral calculi are seen. There is no hydronephrosis or perinephric stranding. There has been interval increase in size of a 2.5 cm isodense lesion of the mid left kidney. There is also a 9 mm hyperdense lesion of the inferior right kidney. There are multiple bilateral renal cysts, measuring up to 2.4 cm The abdominal aorta is of normal caliber. No abdominal adenopathy is seen. The stomach appears normal. There is no sign of small bowel obstruction. There is diverticulosis without evidence of diverticulitis. No free intraperitoneal fluid or air is identified. No distal ureteral or bladder calculi are seen. No obvious bladder mass lesion is evident. The iliac arteries are of normal caliber. No pelvic adenopathy is noted. The prostate is enlarged measuring 6 cm in diameter. There are small bilateral inguinal hernias containing fat No fracture is identified. No focal osseous lesion is seen. There is lumbar scoliosis and degenerative disc disease Impression: 1. No definite sign of abdominal organ injury after trauma 2. Complex lesion of the mid left kidney that could represent a proteinaceous or hemorrhagic cyst, though a solid mass is also possible. There is a smaller complex right renal lesion. Renal protocol abdominal CT or MRI with and without contrast could be obtained for further evaluation 3. Bilateral renal cysts 4. No definite change in a small pancreatic cyst, likely a benign congenital or post inflammatory cyst 5. Cholelithiasis without evidence of acute cholecystitis 6. Diverticulosis without evidence of diverticulitis 7. Prominent prostatic enlargement. Correlation with PSA levels is recommended ACT 112: Positive. There are findings on this exam that require communication between the performing entity and the patient following Patient Test Result Information Act ([place] ACT 112) guidelines. Electronically signed by James Dinh 11-04-2025 5:[address] 11/04/25 16:11 CT cervical spine without IV contrast History: Trauma Comparison: None Technique: Using multidetector thin collimation helical acquisition technique, axial, coronal and sagittal CT images through the cervical spine were obtained without intravenous contrast. Dose reduction techniques were achieved by using automatic exposure control and/or adjustment of mA and/or kV according to patient size and/or use of iterative reconstruction technique. Findings: The cervical vertebrae are normally aligned. Normal cervical lordosis. No acute fracture or subluxation. No prevertebral edema. Severe multilevel discogenic degenerative change. No abnormality of the paraspinous soft tissues. Impression: No acute fracture or traumatic subluxation. Electronically signed by Juan A Cardozo 11-04-2025 5:[address] 11/04/25 16:11 Clinical history: Multiple falls Technique: Axial computed tomography images were obtained of the chest without intravenous contrast Comparison is made to the prior CT dated 02/24/2018 Findings: There are two new 6 mm noncalcified nodules in the superior segment of the left lower lobe. There is an enlarged 1 cm nodular opacity in the left lower lobe. There is an unchanged peripheral 3-4 mm nodule in the left lower lobe. There is an unchanged additional 4 mm left lower lobe nodule. There is a new 11 mm right lower lobe nodule. There is an unchanged 3 mm right upper lobe nodule. There is an unchanged 2-3 mm right lower lobe nodule. There is a slightly enlarged 7 mm groundglass nodular opacity in the right lung apex. There is no pleural effusion or pneumothorax. There is dependent subsegmental atelectasis in both lower lobes. No endobronchial lesion is seen. There is a calcified granuloma adjacent to the right minor fissure. There are small subcentimeter mediastinal lymph nodes. There is no overt mediastinal, hilar, or axillary adenopathy. The thoracic aorta is of normal caliber. There is no pericardial effusion. There is extensive coronary atherosclerosis There is a heterogeneous nodule in the right thyroid lobe. No fracture is seen. No focal osseous lesion is evident Impression: 1. Multiple pulmonary nodules bilaterally, some unchanged and others new or enlarged. The new nodules could be inflammatory but are indeterminate in nature and neoplasm cannot be excluded. There is an enlarged nodular groundglass opacity in the right lung apex also. A follow-up chest CT could be obtained in 3 months 2. Indeterminate thyroid nodule. A thyroid ultrasound could be obtained for further evaluation 3. No definite sign of injury after trauma ACT 112: Positive. There are findings on this exam that require communication between the performing entity and the patient following Patient Test Result Information Act ([place] ACT 112) guidelines. Electronically signed by James Dinh 11-04-2025 5:[address] 11/04/25 16:11 Technique: Axial computed tomography images were obtained of the brain without intravenous contrast. Findings: There is diffuse cerebral atrophy, within expected limits for the patient's age. Areas of decreased attenuation are seen within the periventricular white matter, likely representing chronic small vessel ischemic disease. There is no definite sign of acute or old infarction. No intracranial hemorrhage is evident. No definite mass lesion is seen on this noncontrast examination. There is no midline shift or other form of herniation. No hydrocephalus is seen. No fracture is identified. The orbits and the visualized paranasal sinuses appear unremarkable. The mastoid air cells appear clear. Impression: 1. Cerebral atrophy and chronic small vessel ischemic disease 2. Otherwise unremarkable noncontrast CT of the brain Electronically signed by James Dinh 11-04-2025 4:48 PM Discharge Plan Visit Data Chief Complaint: Fall Stated Complaint: FELL 3 X'S PROSTATE ISSUES ED Provider: Sergei Rai Discharge Problem: JORGE (acute kidney injury), Pulmonary nodule, Multiple falls, Enlarged prostate, Elevated troponin I level Patient Disposition: Being Evaluated by Hospitalist Condition: Fair Discharge Instructions Interventions: ED Discharge Assessment Last Done: 11/04/25 19:18
[2025-11-04 16:40] LABS: INR 1.1 (0.9-1.1); Prothrombin Time 11.9 Seconds (9.0-12.0)
[2025-11-04] MEDS: SODIUM CHLORIDE 0.9% 500 ML IV ONE ×2 (16:41→17:10)
--- NOTE | 2025-11-04 16:48 | CT Scan Report ---
Technique: Axial computed tomography images were obtained of the brain without intravenous contrast. Findings: There is diffuse cerebral atrophy, within expected limits for the patient's age. Areas of decreased attenuation are seen within the periventricular white matter, likely representing chronic small vessel ischemic disease. There is no definite sign of acute or old infarction. No intracranial hemorrhage is evident. No definite mass lesion is seen on this noncontrast examination. There is no midline shift or other form of herniation. No hydrocephalus is seen. No fracture is identified. The orbits and the visualized paranasal sinuses appear unremarkable. The mastoid air cells appear clear. Impression: 1. Cerebral atrophy and chronic small vessel ischemic disease 2. Otherwise unremarkable noncontrast CT of the brain Electronically signed by James Dinh 11-04-2025 4:48 PM
--- NOTE | 2025-11-04 17:00 | CT Scan Report ---
Clinical history: Multiple falls Technique: Axial computed tomography images were obtained of the chest without intravenous contrast Comparison is made to the prior CT dated 02/24/2018 Findings: There are two new 6 mm noncalcified nodules in the superior segment of the left lower lobe. There is an enlarged 1 cm nodular opacity in the left lower lobe. There is an unchanged peripheral 3-4 mm nodule in the left lower lobe. There is an unchanged additional 4 mm left lower lobe nodule. There is a new 11 mm right lower lobe nodule. There is an unchanged 3 mm right upper lobe nodule. There is an unchanged 2-3 mm right lower lobe nodule. There is a slightly enlarged 7 mm groundglass nodular opacity in the right lung apex. There is no pleural effusion or pneumothorax. There is dependent subsegmental atelectasis in both lower lobes. No endobronchial lesion is seen. There is a calcified granuloma adjacent to the right minor fissure. There are small subcentimeter mediastinal lymph nodes. There is no overt mediastinal, hilar, or axillary adenopathy. The thoracic aorta is of normal caliber. There is no pericardial effusion. There is extensive coronary atherosclerosis There is a heterogeneous nodule in the right thyroid lobe. No fracture is seen. No focal osseous lesion is evident Impression: 1. Multiple pulmonary nodules bilaterally, some unchanged and others new or enlarged. The new nodules could be inflammatory but are indeterminate in nature and neoplasm cannot be excluded. There is an enlarged nodular groundglass opacity in the right lung apex also. A follow-up chest CT could be obtained in 3 months 2. Indeterminate thyroid nodule. A thyroid ultrasound could be obtained for further evaluation 3. No definite sign of injury after trauma ACT 112: Positive. There are findings on this exam that require communication between the performing entity and the patient following Patient Test Result Information Act ([place] ACT 112) guidelines. Electronically signed by James Dinh 11-04-2025 5:00 PM
[2025-11-04 17:01] LABS: Appearance Urine Clear (Clear); Bacteria Urine Automated None Seen (None Seen); Epithelial Cell Urine Auto 0-2 /hpf (0-2); Glucose Urine UA Negative (Negative); RBC Urine Automated 0-2 /hpf (0-2); WBC Urine Automated 0-5 /hpf (0-5)
--- NOTE | 2025-11-04 17:08 | CT Scan Report ---
Clinical History: Multiple falls Technique: Axial computed tomography images were obtained of the abdomen and pelvis without intravenous contrast. Comparison is made to the prior CT dated 02/24/2018 Findings: The liver is overall of normal size, attenuation, and contour with no sign of cirrhosis or significant fatty infiltration. No definite liver mass lesion is seen on this noncontrast study. Gallstones are again seen. There is no sign of acute cholecystitis. No bile duct dilatation is noted. The spleen is of normal size. No focal splenic lesion is evident. There is an unchanged 1.3 cm cyst in the distal pancreatic body. The pancreas otherwise appears normal with no sign of acute or chronic pancreatitis and no mass lesion noted. The pancreatic duct is of normal caliber. The adrenal glands appear unremarkable. No renal or proximal ureteral calculi are seen. There is no hydronephrosis or perinephric stranding. There has been interval increase in size of a 2.5 cm isodense lesion of the mid left kidney. There is also a 9 mm hyperdense lesion of the inferior right kidney. There are multiple bilateral renal cysts, measuring up to 2.4 cm The abdominal aorta is of normal caliber. No abdominal adenopathy is seen. The stomach appears normal. There is no sign of small bowel obstruction. There is diverticulosis without evidence of diverticulitis. No free intraperitoneal fluid or air is identified. No distal ureteral or bladder calculi are seen. No obvious bladder mass lesion is evident. The iliac arteries are of normal caliber. No pelvic adenopathy is noted. The prostate is enlarged measuring 6 cm in diameter. There are small bilateral inguinal hernias containing fat No fracture is identified. No focal osseous lesion is seen. There is lumbar scoliosis and degenerative disc disease Impression: 1. No definite sign of abdominal organ injury after trauma 2. Complex lesion of the mid left kidney that could represent a proteinaceous or hemorrhagic cyst, though a solid mass is also possible. There is a smaller complex right renal lesion. Renal protocol abdominal CT or MRI with and without contrast could be obtained for further evaluation 3. Bilateral renal cysts 4. No definite change in a small pancreatic cyst, likely a benign congenital or post inflammatory cyst 5. Cholelithiasis without evidence of acute cholecystitis 6. Diverticulosis without evidence of diverticulitis 7. Prominent prostatic enlargement. Correlation with PSA levels is recommended ACT 112: Positive. There are findings on this exam that require communication between the performing entity and the patient following Patient Test Result Information Act ([place] ACT 112) guidelines. Electronically signed by James Dinh 11-04-2025 5:08 PM
[2025-11-04 17:10] LABS: Partial Thromboplastin Time 30 Seconds (21-31)
[2025-11-04 17:21] LABS: Influenza A virus by PCR Negative (Neg); Influenza B virus by PCR Negative (Neg); SARS CoV2 RNA(COVID-19) Ceph NEGATIVE (Negative)
--- NOTE | 2025-11-04 17:54 | CT Scan Report ---
CT cervical spine without IV contrast History: Trauma Comparison: None Technique: Using multidetector thin collimation helical acquisition technique, axial, coronal and sagittal CT images through the cervical spine were obtained without intravenous contrast. Dose reduction techniques were achieved by using automatic exposure control and/or adjustment of mA and/or kV according to patient size and/or use of iterative reconstruction technique. Findings: The cervical vertebrae are normally aligned. Normal cervical lordosis. No acute fracture or subluxation. No prevertebral edema. Severe multilevel discogenic degenerative change. No abnormality of the paraspinous soft tissues. Impression: No acute fracture or traumatic subluxation. Electronically signed by Juan A Cardozo 11-04-2025 5:53 PM
--- NOTE | 2025-11-04 18:15 | History & Physical Report ---
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 -appears to be associated with significant physical activity, denies constant lightheadedness -describes unsteadiness on feet at times -CT head unremarkable -differential includes arrythmia, , dehydration, orthostatic hypotension, stroke (no deficits on exam), Plan: -continue IV hydration -check echo, monitor on telemetry -check troponin, BNP, ECG -check orthostats -hold eliquis/aspirin for possible biopsy and JORGE on CKD -continue atorvastatin -hold metoprolol given tachybrady syndrome -cardiology consult could be considered after above #JORGE on CKD -likely secondary to progression of CKD vs. 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 outpatient vs. observation #HTN -hold lisinopril, amlodopine I spent a total of 80 minutes in direct patient care, including [id number] time with the patient and/or family, reviewing medical records, ordering and reviewing diagnostic tests, and coordinating care with other healthcare providers. This time includes: history taking, physical examination, medical decision making, counseling, ECG interpretation, imaging interpretation, lab interpretation, orders, and education, excluding time spent in the performance of separately billed services. 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 No admissions at [facility]. In the ED, found to have mass on kidney, nodules in lungs, concern for enlarged prostate, uptrending creatinine, admitted to medicine for further workup. Patient seen and examined at bedside. Patient states he is doing okay today he was brought in by his son. has been having lightheadedness for the past few weeks. He states that this is never happened before. Does not history of cardiac disease. Usually associated with movement of. He is not really sure what triggers it. He knows he has kidney disease is getting worse and has frequent follow-ups with his kidney doctor. He states he feels fine and would like to go home tonight. This provider mentions that his kidneys function is getting worse and he has been new masses in his body and he would benefit from a potential biopsy and further evaluation of lightheadedness. And the son agreed to a 1 night stay. He is also open to the concept of a biopsy inpatient. Denies shortness of breath chest pain nausea vomiting other associated symptoms. No tobacco use, no alcohol use, no drug use, very active, full code (discussed with patient and son, ok with time limited trial if needed). Allergies Allergy/AdvReac Type Severity Reaction Status Date / Time Iodinated Contrast Media Allergy Severe edema Verified 08/29/25 11:20 face, difficulty breathing, periorbital edema Home Medications Medication Instructions Recorded Confirmed Type nitroglycerin 0.4 mg sublingual 0.4 mg sublingual Q5M PRN chest 07/11/19 08/29/25 History tablet pain #25 tabs cholecalciferol (vitamin D3) 50 2,000 units PO DAILY #30 tabs 12/05/19 08/29/25 Rx mcg (2,000 unit) tablet sildenafil 50 mg tablet 50 mg PO DAILY PRN sexual activity 05/05/21 08/29/25 Rx #10 tabs aspirin 81 mg tablet,delayed 81 mg PO .M.W.F #90 tabs 05/26/22 08/29/25 Rx release (Adult Low Dose Aspirin) amlodipine 5 mg tablet 5 mg PO DAILY 90 days #90 tabs 09/03/22 08/29/25 Rx atorvastatin 80 mg tablet 80 mg PO DAILY #90 tabs 11/18/22 08/29/25 Rx lisinopril 10 mg tablet 10 mg PO DAILY #90 tabs 11/22/22 08/29/25 Rx apixaban 2.5 mg tablet (Eliquis) 2.5 mg PO BID #180 tabs 06/13/23 08/29/25 Rx metoprolol succinate 25 mg 12.5 mg (1/2 x 25 mg) PO DAILY #90 06/13/23 08/29/25 Rx tablet,extended release 24 hr tabs Past Med/Surg History Problem List (Updated 11/04/25 @ 18:39 by Riaz Nova MD) Enlarged prostate Chronic anticoagulation Atrial fibrillation with slow ventricular response Aortic systolic murmur on examination Arthritis of knee, left Antiplatelet or antithrombotic long-term use Essential hypertension (Acute) Dyslipidemia (Chronic) Presence of bare metal stent in LAD coronary artery (Chronic) CAD (coronary artery disease) (Chronic) Pulmonary nodule (Chronic) Chronic kidney disease (CKD), stage III (moderate) (Acute) Elevated PSA (Acute) Prediabetes (Chronic) Medical History Rupture of popliteal cyst Pain of left calf Surgical History S/P thoracotomy Status post repair of nerve S/P hemorrhoidectomy S/P cardiac catheterization S/P appendectomy Family History Mother Colorectal cancer Father Coronary arteriosclerosis Myocardial infarction Denies family history of Ovarian cancer Prostate cancer Breast cancer Social History Smoking Status: Never smoker Do You Dip or Chew Tobacco: No; Hx Alcohol Use: Yes (social) Hx Substance Use: No Preferred Language: Monegasque Communication Ability: Effective Visual Impairment: No Limitations Hearing Ability: Normal Beliefs That Will Affect Care: None marital status: Current Living Situation: Spouse current occupational status: retired Feels Safe at Home: Yes Childhood Exposure to Second-Hand Smoke: Yes Diet: regular caffeine: Yes Dental Care, Regularly: Yes Physical Activity Frequency: 5-6 Times per Week Seatbelt Use: always Sunscreen Use: Yes Do you think of yourself as: straight/heterosexual Gender Identity: Male Assistive Devices: Hearing Aid - Bilateral Review of Systems Review of Systems: -negative unless listed above Physical Exam Physical Exam: Gen: A&O 3 NAD, great shape for age HEENT: NCAT, EOMI, not icteric. External ears normal. No rhinorrhea. Dry mucous membranes. Neck: Supple, full range of motion, no observable masses, No meningeal sign. Lungs: No Respiratory distress. CV: RRR, no edema, systolic aortic murmur noted Abdomen: Soft, nondistended, No rebound tenderness. MSK: No joint swelling, no redness. Skin: No rashes, petechiae, lesions. Normal color per patient. Neuro: Normal Gait, Grossly intact. Psych: Appropriate for situation. Results & Data Results & Data Vital Signs (Past 12 Hours) Vital Signs Temp Pulse Resp BP Pulse Ox 11/04/25 17:24 83 11/04/25 15:31 37.7 C H 65 16 139/80 96 Laboratory Results -personally reviewed, no leukocytosis, creatinine appears slightly below to around baseline, creatinine elevated from baseline, UA positive for blood and protein consistent with CKD Code Status & VTE Plan Code Status -full code (time limited trial only, discussed with patient and son) VTE Prophylaxis Plan VTE Prophylaxis will be ordered: Yes
[2025-11-04] MEDS: LACTATED RINGER'S 1,000 ML IV SCH (19:15)
[2025-11-04] MEDS ORDERED: POLYETHYLENE (MIRALAX) 17 GM PACK PO PRN (19:18)
[2025-11-04] MEDS ORDERED: ONDANSETRON INJ 2 MG/ML 2 ML VIAL IV PRN (19:18)
[2025-11-04] MEDS ORDERED: ACETAMINOPHEN 325 MG TAB PO PRN (19:18)
[2025-11-04 21:44] LABS: Protein Creatinine Ratio Urine 3.8 (0-0.2); Total Protein Urine Random 413.4 mg/dl (0-11.9)
[2025-11-05 07:20] LABS: Anion Gap 10.0 (3-11); Blood Urea Nitrogen 46.0 mg/dl (6-23); Calcium 8.2 mg/dl (8.6-10.3); Carbon Dioxide 24.0 mmol/L (21-32); Chloride 103.0 mmol/L (98-107); Creatinine Clr Calc Pharmacy 16.3 ml/min; Glucose 117.0 mg/dl (70-99(Fasting)); Magnesium 2.0 mg/dl (1.7-2.4); Potassium 4.4 mmol/L (3.5-5.1); Sodium 137.0 mmol/L (136-145)
[2025-11-05] MEDS: ATORVASTATIN 40 MG TAB PO SCH (07:40)
[2025-11-05 08:03] VITALS: RESP 20; TEMP 98.6
--- NOTE | 2025-11-05 09:24 | XCELERA ---
[id number]
--- NOTE | 2025-11-05 09:53 | Electrocardiogram Report ---
Test Reason : Blood Pressure : */* mmHG Vent. Rate : 86 BPM Atrial Rate : * BPM P-R Int : * ms QRS Dur : 96 ms QT Int : 374 ms P-R-T Axes : * -44 82 degrees QTcB Int : 447 ms Atrial fibrillation with premature ventricular or aberrantly conducted complexes Left axis deviation Minimal voltage criteria for LVH, may be normal variant Abnormal ECG Confirmed by Juan A Zimmerman ([id number]) on 11/05/2025 9:52:59 AM Referred By: REFERRED SELF Confirmed By: Juan A Zimmerman
[2025-11-05 11:20] VITALS: BP 151/67; PULSE 80; O2SAT 91
--- NOTE | 2025-11-05 13:19 | Hospitalist Progress Note ---
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 -appears to be associated with significant physical activity, denies constant lightheadedness -describes unsteadiness on feet at times -CT head unremarkable -differential includes arrythmia, , dehydration, orthostatic hypotension, stroke (no deficits on exam), Plan: -continue IV hydration Serial troponins were not significantly elevated to qualify for ACS and the patient remains free from any symptoms Echo of the heart showed LV systolic function is mild to moderately reduced wi th EF of 40 to 45%, LA is severely dilated, right atrium is moderate to severely dilated next mild aortic regurgitation, aortic valve sclerosis without significant stenosis, mild MR, moderate tricuspid regurgitation, RV systolic pressure is elevated to 42 for 50 mmHg and moderate aortic root dilatation Appreciate cardiology input on recommendation -continue atorvastatin .clinically stable and denies any significant symptoms and definitely wants to go home Awaiting cardiology evaluation prior to discharging home #JORGE on CKD -likely secondary to progression of CKD vs. 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 Dr Sergio Chris Admission and Anticipated Discharge Date Admission Date: November 04, 2025 Subjective 11/05/2025 The patient was seen and examined in medical telemetry unit in presence of the He is very hard of hearing but denies any chest pain and/or palpitation He does not have any cough or any phlegm and no shortness of breath Denies any issues with urination He wants to go home today Review of Systems Review of Systems: All systems reviewed and are unremarkable except as noted below Physical Exam Physical Exam: Lying in bed without any acute distress Constitutional: + ill appearing and average body habitus Eyes: PERRL, conjunctivae normal, anicteric sclerae ENMT: external ear and nose normal, oropharynx normal Neck: trachea midline, no thyromegaly Respiratory: no respiratory distress Auscultation: lungs clear to auscultation bilaterally Cardiovascular: Rate/Rhythm: + irregularly irregular; not tachycardic Heart Sounds: normal S1, normal S2 and + murmur Extremities: no edema Gastrointestinal (Abdomen): Inspection/Auscultation: normal bowel sounds; abdomen not distended Percussion/Palpation: abdomen soft; abdomen nontender Musculoskeletal: No acute arthritis involving any of the joint Neurologic: normal touch/pain/proprioception and moves all extremities; no focal motor deficits very hard of hearing Lymphatic: no cervical or axillary lymphadenopathy Results & Data Results & Data Vital Signs (Past 12 Hours) Vital Signs Temp Pulse Pulse Resp BP Pulse Ox O2 Del Method 11/05/25 11:19 37.0 C 80 20 151/67 H 91 Room Air 11/05/25 08:02 37.0 C 83 20 163/81 H 92 Room Air 11/05/25 07:21 87 11/05/25 01:29 82 11/05/25 01:24 36.9 C 82 18 159/89 H 95 Room Air Laboratory Results Short CBC 11/04/25 Range/Units 15:53 WBC 9.28 (4.8-10.8) K/ul Hgb 11.6 L (14.0-18.0) g/dL Hct 34.5 L (42.0-52.0) % Plt Count 142 (130-400) K/uL BMP 11/04/25 11/05/25 15:53 05:48 Sodium 135 L 137 Potassium 4.3 4.4 Chloride 102 103 Carbon Dioxide 26 24 BUN 52 H 46 H Creatinine 3.20 H 2.94 H Glucose 139 H 117 H Calcium 8.8 8.2 L Liver Function 11/04/25 Range/Units 15:53 Total Bilirubin 0.7 (0.2-1.0) mg/dl AST 24 (13-39) U/L ALT 19 (7-52) U/L Alkaline Phosphatase 53 (34-104) U/L Albumin 3.5 (3.4-5.0) gm/dl Urine 11/04/25 Range/Units 16:20 Urine Color Yellow Urine Appearance Clear (Clear) Urine pH 5.5 (4.5-7.5) Ur Specific [place] 1.018 (1.000-1.030) Urine Protein 3+ H (Negative) Urine Glucose (UA) Negative (Negative) Medications Administered Current Inpatient Medications Acetaminophen (Acetaminophen 325 Mg Tab) 650 mg PO Q4H PRN PRN Reason: pain/fever Stop: 12/04/25 19:17 Atorvastatin Calcium (Atorvastatin 40 Mg Tab) 80 mg PO DAILY MANUEL Stop: 12/05/25 08:59 Last Admin: 11/05/25 07:40 Dose: 80 mg Ondansetron HCl (Ondansetron Inj 2 Mg/Ml 2 Ml Vial) 4 mg IV Q6H PRN PRN Reason: Nausea Stop: 12/04/25 19:17 Polyethylene Glycol (Polyethylene (Miralax) 17 Gm Pack) 17 gm PO DAILY PRN PRN Reason: Constipation Stop: 12/04/25 19:17
--- NOTE | 2025-11-05 14:56 | Cardiology Consultation ---
Date of Consultation November 05, 2025 Assessment & Plan (1) Multiple falls: (2) Atrial fibrillation with slow ventricular response: (3) CAD (coronary artery disease): (4) Valvular heart disease: (5) Cardiomyopathy: Plan 1. Multiple falls: The event leading up to his admission is suggestive of a mechanical fall. He did not endorse symptoms of dizziness or loss of consciousness. Review of his telemetry did not demonstrate any significant bradycardia or pauses. 2. Atrial fibrillation: Permanent. He appears of adequate rate control on low- dose metoprolol. Again, telemetry did not demonstrate any significant slow rates or pauses. Overall good rate control without overt symptoms. He should continue his systemic anticoagulation with reduced dose apixaban. 3. Coronary disease: Remote PCI. No current symptoms suggestive of angina or coronary insufficiency. He should continue his antiplatelet therapy, apixaban and high-dose atorvastatin. 4. Valvular heart disease: He has an element of aortic and mitral regurgitation. Not severe. This can be monitored over time. 5. Cardiomyopathy: Echocardiogram today was suggestive of mildly reduced LV systolic function. No overt symptoms or evidence of decompensated heart failure. I am not sure if there is a need for more aggressive therapy in the absence of symptoms. Given his renal dysfunction he is not a good candidate for more MARK/ARB/Entresto or even an SGLT2 inhibitor. He is noted to have some slow heart rates at times and increasing his metoprolol would also be a concern. In the absence of ischemic symptoms I am not sure an additional evaluation is necessary at this point. Again, he seems well compensated overall and more aggressive therapy at this point is hampered by his other comorbidities, specifically renal dysfunction. History of Present Illness Reason for Consultation: Dizziness, syncope Requesting Physician: Dot Attending Physician: Mehdi Chris MD History of Present Illness The patient is a 89-year-old gentleman with a history of coronary artery disease status post remote percutaneous intervention and permanent atrial fibrillation who presented to the hospital after suffering a fall. Patient states that yesterday he was out cutting some wood. He apparently had a hat on which restricted his vision. He feels that his vision was impaired and he suffered a fall against his garage door. Due to the patient's positioning he has some difficulty getting up. His actually found him sometime later and was able to get him off the ground. She was concerned about the episode and brought him to the hospital for an evaluation. Patient states that he was not dizzy leading up to the event. He did not lose consciousness by report. His inability to get up was simply due to his positioning against the garage door. He states that in general he has not had symptoms of dizziness or lightheadedness. He cannot recall suffering any syncopal episodes. He generally not aware of any palpitations. He maintains an active lifestyle. As noted above he was out chopping wood and is able to get to his mailbox in a rapid fashion on a daily basis. His is actually concerned that he is doing too much activity at times. He denies symptoms associated with activity such as breathing difficulty or chest pain. Allergies Allergy/AdvReac Type Severity Reaction Status Date / Time Iodinated Contrast Media Allergy Severe edema Verified 08/29/25 11:20 face, difficulty breathing, periorbital edema Home Medications Medication Instructions Recorded Confirmed Type nitroglycerin 0.4 mg sublingual 0.4 mg sublingual Q5M PRN chest 07/11/19 08/29/25 History tablet pain #25 tabs cholecalciferol (vitamin D3) 50 2,000 units PO DAILY #30 tabs 12/05/19 08/29/25 Rx mcg (2,000 unit) tablet sildenafil 50 mg tablet 50 mg PO DAILY PRN sexual activity 05/05/21 08/29/25 Rx #10 tabs aspirin 81 mg tablet,delayed 81 mg PO .M.W.F #90 tabs 05/26/22 08/29/25 Rx release (Adult Low Dose Aspirin) amlodipine 5 mg tablet 5 mg PO DAILY 90 days #90 tabs 09/03/22 08/29/25 Rx atorvastatin 80 mg tablet 80 mg PO DAILY #90 tabs 11/18/22 08/29/25 Rx lisinopril 10 mg tablet 10 mg PO DAILY #90 tabs 11/22/22 08/29/25 Rx apixaban 2.5 mg tablet (Eliquis) 2.5 mg PO BID #180 tabs 06/13/23 08/29/25 Rx metoprolol succinate 25 mg 12.5 mg (1/2 x 25 mg) PO DAILY #90 06/13/23 08/29/25 Rx tablet,extended release 24 hr tabs Patient History Medical History Rupture of popliteal cyst Pain of left calf Surgical History S/P thoracotomy Status post repair of nerve S/P hemorrhoidectomy S/P cardiac catheterization S/P appendectomy Family History Mother Colorectal cancer Father Coronary arteriosclerosis Myocardial infarction Denies family history of Ovarian cancer Prostate cancer Breast cancer Social History Smoking Status: Former smoker Tobacco Type: Cigars Smoking End Date: "40 years ago"; Do You Dip or Chew Tobacco: No; Hx Alcohol Use: No Hx Substance Use: No Preferred Language: [place]ican Communication Ability: Effective Visual Impairment: No Limitations Hearing Ability: Normal 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 Hard of hearing. Physical Exam Physical Exam: The patient is alert and oriented. Mood and affect appeared normal. He answered all questions appropriately. HEENT: Pupils are equal and reactive to light and accommodation. Extraocular movements are intact. The sclerae are anicteric. Neuro: Cranial nerves intact Lungs: Clear to auscultation bilaterally. He has good air movement without use of accessory muscles. No rales wheezes or rhonchi. Cardiac: Heart demonstrates an irregular rhythm. Normal rate. Normal S1 and S2. No murmurs on examination. Pulses: The patient has palpable radial pulses bilaterally that are equal in intensity Extremities: There was no evidence of hypoperfusion. There is no cyanosis or clubbing. There is no edema. Skin: I did not appreciate any rashes on examination today. Results & Data Vital Signs (Past 12 Hours) Vital Signs Temp Pulse Pulse Resp BP Pulse Ox O2 Del Method 11/05/25 11:19 37.0 C 80 20 151/67 H 91 Room Air 11/05/25 08:02 37.0 C 83 20 163/81 H 92 Room Air 11/05/25 07:21 87 Laboratory Results Abnormal Lab Results 11/04/25 11/04/25 11/04/25 15:53 16:20 19:41 WBC 9.28 RBC 3.71 L Hgb 11.6 L Hct 34.5 L MCV 93.0 MCH 31.3 MCHC 33.6 RDW Std Deviation 44.7 RDW Coeff of Raul 13.1 Plt Count 142 MPV 9.9 Immature Gran % (Auto) 0.4 Neut % (Auto) 80.1 Lymph % (Auto) 8.0 [place] % (Auto) 11.0 Eos % (Auto) 0.3 Baso % (Auto) 0.2 Neut # (Auto) 7.43 H Lymph # (Auto) 0.74 L [place] # (Auto) 1.02 H Eos # (Auto) 0.03 Baso # (Auto) 0.02 Immature Gran # (Auto) 0.04 PT 11.9 INR 1.1 APTT 30 PTT Ratio 1.1 Sodium 135 L Potassium 4.3 Chloride 102 Carbon Dioxide 26 Anion Gap 7 BUN 52 H Creatinine 3.20 H Est Cr Clr Drug Dosing 15.5 eGFR 17.93 BUN/Creatinine Ratio 16.3 Glucose 139 H Calcium 8.8 Magnesium Total Bilirubin 0.7 AST 24 ALT 19 Alkaline Phosphatase 53 Troponin I High Sens 78.9 H* B-Natriuretic Peptide 671 H Total Protein 6.3 Albumin 3.5 Globulin 2.8 Albumin/Globulin Ratio 1.3 Prostate Specific Ag 6.673 H Urine Color Yellow Urine Appearance Clear Urine pH 5.5 Ur Specific [place] 1.018 Urine Protein 3+ H Urine Glucose (UA) Negative Urine Ketones Trace H Urine Blood 2+ H Urine Nitrite Negative Urine Bilirubin Negative Urine Urobilinogen Negative Ur Leukocyte Esterase Negative Urine WBC (Auto) 0-5 Urine RBC (Auto) 0-2 U Hyaline Cast (Auto) 3-5 H U Epithel Cells (Auto) 0-2 Urine Bacteria (Auto) None Seen Ur Random Creatinine 109.1 U Random Total Protein 413.4 H Protein/Creatinin Ratio 3.8 H Urine Comment SARS-CoV-2 (PCR) NEGATIVE Influenza Type A (PCR) Negative Influenza Type B (PCR) Negative RSV (RT-PCR) Negative 11/04/25 11/04/25 11/05/25 21:29 22:50 05:48 WBC RBC Hgb Hct MCV MCH MCHC RDW Std Deviation RDW Coeff of Raul Plt Count MPV Immature Gran % (Auto) Neut % (Auto) Lymph % (Auto) [place] % (Auto) Eos % (Auto) Baso % (Auto) Neut # (Auto) Lymph # (Auto) [place] # (Auto) Eos # (Auto) Baso # (Auto) Immature Gran # (Auto) PT INR APTT PTT Ratio Sodium 137 Potassium 4.4 Chloride 103 Carbon Dioxide 24 Anion Gap 10 BUN 46 H Creatinine 2.94 H Est Cr Clr Drug Dosing 16.3 eGFR 19.85 BUN/Creatinine Ratio 15.6 Glucose 117 H Calcium 8.2 L Magnesium 2.0 Total Bilirubin AST ALT Alkaline Phosphatase Troponin I High Sens 90.3 H* D 88.9 H* 92.6 H* B-Natriuretic Peptide Total Protein Albumin Globulin Albumin/Globulin Ratio Prostate Specific Ag Urine Color Urine Appearance Urine pH Ur Specific [place] Urine Protein Urine Glucose (UA) Urine Ketones Urine Blood Urine Nitrite Urine Bilirubin Urine Urobilinogen Ur Leukocyte Esterase Urine WBC (Auto) Urine RBC (Auto) U Hyaline Cast (Auto) U Epithel Cells (Auto) Urine Bacteria (Auto) Ur Random Creatinine U Random Total Protein Protein/Creatinin Ratio Urine Comment SARS-CoV-2 (PCR) Influenza Type A (PCR) Influenza Type B (PCR) RSV (RT-PCR) 11/05/25 10:05 WBC RBC Hgb Hct MCV MCH MCHC RDW Std Deviation RDW Coeff of Raul Plt Count MPV Immature Gran % (Auto) Neut % (Auto) Lymph % (Auto) [place] % (Auto) Eos % (Auto) Baso % (Auto) Neut # (Auto) Lymph # (Auto) [place] # (Auto) Eos # (Auto) Baso # (Auto) Immature Gran # (Auto) PT INR APTT PTT Ratio Sodium Potassium Chloride Carbon Dioxide Anion Gap BUN Creatinine Est Cr Clr Drug Dosing eGFR BUN/Creatinine Ratio Glucose Calcium Magnesium Total Bilirubin AST ALT Alkaline Phosphatase Troponin I High Sens 103.4 H* B-Natriuretic Peptide Total Protein Albumin Globulin Albumin/Globulin Ratio Prostate Specific Ag Urine Color Urine Appearance Urine pH Ur Specific [place] Urine Protein Urine Glucose (UA) Urine Ketones Urine Blood Urine Nitrite Urine Bilirubin Urine Urobilinogen Ur Leukocyte Esterase Urine WBC (Auto) Urine RBC (Auto) U Hyaline Cast (Auto) U Epithel Cells (Auto) Urine Bacteria (Auto) Ur Random Creatinine U Random Total Protein Protein/Creatinin Ratio Urine Comment SARS-CoV-2 (PCR) Influenza Type A (PCR) Influenza Type B (PCR) RSV (RT-PCR) Diagnostic Findings Echocardiogram 11/05/2025: Mildly reduced LV systolic function with ejection fraction of 40 to 45%. Severe biatrial enlargement. Mild aortic regurgitation. Mild mitral regurgitation. Moderate tricuspid regurgitation with mildly elevated pulmonary pressures. Moderate aortic root dilation. PG Care Time/CCT Total # of Minutes Spent Total Time Spent with Patient: Total time spent is greater than 50% in coordination of care (as documented) at patient's floor/unit and/or counseling patient: Coding Level of Care Code 22012 INT INP/OBS CARE 3/75MIN Diagnoses Multiple falls R29.6 Atrial fibrillation with slow ventricular response I48.91 CAD (coronary artery disease) I25.10 Valvular heart disease I38 Cardiomyopathy I42.9
--- NOTE | 2025-11-06 07:55 | Discharge Summary ---
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 No admissions at [facility]. In the ED, found to have mass on kidney, nodules in lungs, concern for enlarged prostate, uptrending creatinine, admitted to medicine for further workup. Patient seen and examined at bedside. Patient states he is doing okay today he was brought in by his son. has been having lightheadedness for the past few we eks. He states that this is never happened before. Does not history of cardiac disease. Usually associated with movement of. He is not really sure what triggers it. He knows he has kidney disease is getting worse and has frequent follow-ups with his kidney doctor. He states he feels fine and would like to go home tonight. This provider mentions that his kidneys function is getting worse and he has been new masses in his body and he would benefit from a potential biopsy and further evaluation of lightheadedness. And the son agreed to a 1 night stay. He is also open to the concept of a biopsy inpatient. Denies shortness of breath chest pain nausea vomiting other associated symptoms. No tobacco use, no alcohol use, no drug use, very active, full code (discussed with patient and son, ok with time limited trial if needed). Admission Exam Per Admitting Provider Physical Exam: Gen: A&O 3 NAD, great shape for age HEENT: NCAT, EOMI, not icteric. External ears normal. No rhinorrhea. Dry mucous membranes. Neck: Supple, full range of motion, no observable masses, No meningeal sign. Lungs: No Respiratory distress. CV: RRR, no edema, systolic aortic murmur noted Abdomen: Soft, nondistended, No rebound tenderness. MSK: No joint swelling, no redness. Skin: No rashes, petechiae, lesions. Normal color per patient. Neuro: Normal Gait, Grossly intact. Psych: Appropriate for situation. Principal Diagnosis Presyncope, atrial fibrillation with slow ventricular response, CKD, lung nodules and renal lesion Discharge Exam Lying in bed without any acute distress Constitutional + ill appearing and average body habitus Eyes PERRL, conjunctivae normal, anicteric sclerae ENMT external ear and nose normal, oropharynx normal Neck trachea midline, no thyromegaly Respiratory no respiratory distress Auscultation: lungs clear to auscultation bilaterally Cardiovascular Rate/Rhythm: + irregularly irregular; not tachycardic Heart Sounds: normal S1, normal S2 and + murmur Extremities: no edema Gastrointestinal (Abdomen) Inspection/Auscultation: normal bowel sounds; abdomen not distended Percussion/Palpation: abdomen soft; abdomen nontender Neurologic normal touch/pain/proprioception and moves all extremities; no focal motor deficits Lymphatic no cervical or axillary lymphadenopathy Discharge Data Allergies Allergy/AdvReac Type Severity Reaction Status Date / Time Iodinated Contrast Media Allergy Severe edema Verified 08/29/25 11:20 face, difficulty breathing, periorbital edema Consultations 11/04/25 18:09 ED Decision to Admit Stat 11/05/25 08:03 Consult Cardiology Routine Ordered Studies 11/04/25 16:11 CT abd pelvis wo con Stat CT cervical spine wo con Stat CT chest diagnostic wo con Stat CT head/brain wo con Stat Hospital Course (1) Atrial fibrillation with slow ventricular response: (2) Essential hypertension: (3) Dyslipidemia: (4) CAD (coronary artery disease): (5) Presence of bare metal stent in LAD coronary artery: (6) IPMN (intraductal papillary mucinous neoplasm): (7) Elevated PSA: (8) Enlarged prostate: Plan 89 yo male with 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 #Presycnope #Hx of Tachy Matthieu Syndrome Atrial Fibrillation #CAD s/p LAD stent -unclear etiology, patient is not great medical doctor nuclear medicine -appears to be associated with significant physical activity, denies constant lightheadedness -describes unsteadiness on feet at times -CT head unremarkable -differential includes arrythmia, , dehydration, orthostatic hypotension, stroke (no deficits on exam), Plan: -continue IV hydration Serial troponins were not significantly elevated to qualify for ACS and the patient remains free from any symptoms Echo of the heart showed LV systolic function is mild to moderately reduced with EF of 40 to 45%, LA is severely dilated, right atrium is moderate to severely dilated next mild aortic regurgitation, aortic valve sclerosis without significant stenosis, mild MR, moderate tricuspid regurgitation, RV systolic pressure is elevated to 42 for 50 mmHg and moderate aortic root dilatation Appreciate cardiology input on recommendation -continue atorvastatin .clinically stable and denies any significant symptoms and definitely wants to go home Awaiting cardiology evaluation prior to discharging home #JORGE on CKD -likely secondary to progression of CKD vs. 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 Dr Sergio Chris Total Time Total Time Spent Total Time Spent (In Minutes): 40 Minutes Discharge Plan Discharge Items Patient Disposition: Home - Self-Care Reason For Visit: PRESYNCOPE Discharge Diagnosis: Presyncope, atrial fibrillation with slow ventricular response, CKD, lung nodules and renal lesion Condition on Discharge: Fair Activity: Resume your previous activity Activity Comment: Take it easy for the next few weeks Non-emergency contact: Primary Care Provider Call non-emergency contact if: you have any medication questions and your symptoms worsen Follow-up/Referrals: Aj Toro DO [Physician] - 11/11/25 10:20 am Carine Montoya DO [Primary Care Provider] - (The office will call you with a follow up appointment.) Diet: Heart Healthy Addtl Attending Provider Instructions: Please take precautions to avoid falls Take your medications as advised and there is no change in your medications Keep well-hydrated Take it easy for the next few weeks Please keep appointments with your healthcare providers You will have to have a follow-up appointment with vascular technologist through your PCP Pending Studies at Discharge: No Stand-Alone Forms: My [facility], Smoking Cessation Medications and DC Order Prescriptions: Continued sildenafil 50 mg tablet 50 mg PO DAILY PRN (Reason: sexual activity) Qty: 10 3RF amlodipine 5 mg tablet 5 mg PO DAILY 90 Days Qty: 90 1RF atorvastatin 80 mg tablet 80 mg PO DAILY Qty: 90 1RF lisinopril 10 mg tablet 10 mg PO DAILY Qty: 90 3RF nitroglycerin 0.4 mg tablet, sublingual 0.4 mg SL Q5M PRN (Reason: chest pain) Qty: 25 cholecalciferol (vitamin D3) 2,000 unit tablet 2,000 units PO DAILY Qty: 30 3RF aspirin [Adult Low Dose Aspirin] 81 mg tablet,delayed release (DR/EC) 81 mg PO .M.W.F Qty: 90 3RF Eliquis 2.5 mg tablet 2.5 mg PO BID Qty: 180 3RF metoprolol succinate 25 mg tablet extended release 24 hr 12.5 mg PO DAILY Qty: 90 3RF Discharge Orders: Discharge Order (Routine); Ordered 11/05/25 Ordered By: Mehdi Chris Admission Data Admit Date/Time: 11/04/25 18:11 Attending Provider: Mehdi Chris Admit Provider: Riaz Nova Primary Care Provider: Carine Montoya Other Providers: Riaz Nova; Ba Greenfield Kip M.; Gucci John; Allan Oates; Adrian Pichardo; Ba Galdamez Jr; Lionel Moreau; Ashley Crockett; Brianne Acevedo; Juan A Hyman; Juan A Zimmerman; Ammy Garcia; Lester Wilkes; Emelia Lynn; Lester Valentine; Bo Morales; Feliciano Srinivasan; Hugh Bradshaw; Lyn Correia; Antoinette Carbone Other Interventions: Discharge Summary Assessment (RN) Last Done: 11/05/25 13:59
== END 2025-11-05 14:57 | disposition home or self-care (01) | DRG 312 ==
LOC: ED 15:17 → EDINP 18:11 → SUATTDRO 18:11 → 2N 19:18